=== PATIENT | male | born 1950 | race Caucasian/White ===

== ENCOUNTER → 2016-06-05 | Outpatient (CLI) | payer OTHER, MEDICARE | LOC: BMCIMAGING 17:27 | PROVIDERS: ATTEND Family Medicine | DX: M19.011 Primary osteoarthritis, right shoulder (principal); M24.011 Loose body in right shoulder ==

== ENCOUNTER 2016-09-25 18:28 | Observation (INO) | payer OTHER, MEDICARE ==
[2016-09-25] MEDS ORDERED: NS 1,000 ML IV ONE (18:37)
[2016-09-25] MEDS ORDERED: ASPIRIN 81 MG CHEWABLE TAB PO ONE (18:37)
--- NOTE | 2016-09-25 18:37 | EDPHY ---
H & P Stated Complaint: L chest pain x1.5 mins at 1530 today with diaphoresis, now all resolved HPI/ROS: HPI CHIEF COMPLAINT: Chest pain HISTORY OF PRESENT ILLNESS: This patient is 66-year-old male, significant past medical history for hypertension, otherwise healthy, only takes lisinopril daily , presents emergency room after developed chest discomfort around 330 this afternoon. 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 And then became painful he got very lightheaded and diaphoretic. He states it lasted approximately less than 2 minutes. States both his arms felt very heavy and he had tingling in bilateral arms. He also tells me a little bit of left jaw pain. He states symptoms have resolved since that time. He has not had a recurrence of this. Decided come the emergency room cause he thought that his symptoms were concerning. Upon arrival here in emergency room he has no chest pain or shortness of breath. He denies nausea or diaphoresis. Denies focal weakness. 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 Exam Constitutional appears well nontoxic, triage nursing summary reviewed, vital signs reviewed, awake/alert. Eyes normal conjunctivae and sclera, EOMI, PERRLA. HENT normal inspection, atraumatic, moist mucus membranes, no epistaxis, neck supple/ no meningismus, no raccoon eyes. Respiratory clear to auscultation bilaterally, normal breath sounds, no respiratory distress, no wheezing. Cardiovascular rate normal, regular rhythm, no murmur, no edema, distal pulses normal. Gastrointestinal soft, non-tender, no rebound, no guarding, normal bowel sounds, no distension, no pulsatile mass. Genitourinary no CVA tenderness. Musculoskeletal no midline vertebral tenderness, full range of motion, no calf swelling, no tenderness of extremities, no meningismus, good pulses, neurovascularly intact. Skin pink, warm, & dry, no rash, skin atraumatic. Neurologic awake, alert and oriented x 3, AAOx3, moves all 4 extremities equally, motor intact, sensory intact, CN II-XII intact, normal cerebellar, normal vision, normal speech. Psychiatric normal mood/affect. Heme/Lymph/Immune no lymphadenopathy. Differential diagnosis includes but is not limited to: ACS, atypical chest pain , pneumothorax, pneumonia, pulmonary embolism, aortic dissection, congestive heart failure, tumor, musculoskeletal pain, esophageal pain, GERD, peptic ulcer disease, pancreatitis Medical Decision Making: Plan for this patient IV establishment, full monitoring specialist, EKG, troponin, full-dose aspirin, check blood work, chest x-ray. Patient is chest pain-free at this time. Re-evaluation: EKG interpretation by me on record in [facility] system. Impression time of EKG 18 40, this is sinus rhythm rate of 66 I do not appreciate significant ischemia specifically no ST elevation no significant ST depression no significant T-wave abnormalities or prolonged intervals. No signs of cardiac arrhythmia. 2015: Patient is agreeable for admission for chest pain rule out. I spoke with Dr. Carrasco the hospitalist service agrees to admit this patient. At this time this patient is chest pain-free. Source: Patient - Personal History Current Tetanus/Diphtheria Vaccine: Unsure Current Tetanus Diphtheria and Acellular Pertussis (TDAP): Unsure - Medical/Surgical History Hx Asthma: No Hx Chronic Respiratory Disease: No Hx Diabetes: No Hx Cardiac Disease: No Hx Renal Disease: No Hx Cirrhosis: No Hx Alcoholism: No Hx HIV/AIDS: No Hx Splenectomy or Spleen Trauma: No Other PMH: htn. appy - Social History Smoking Status: Never smoked Constitutional: Initial Vital Signs Temperature (C) 36.7 C 09/25/16 18:31 Heart Rate 68 09/25/16 18:31 Respiratory Rate 16 09/25/16 18:31 Blood Pressure 156/104 H 09/25/16 18:31 O2 Sat (%) 95 09/25/16 18:31 O2 Delivery Mode Room Air Allergies/Adverse Reactions: No Known Allergies Allergy (Unverified 09/25/16 18:34) Home Medications: Medication Instructions Recorded Ibuprofen [Advil] 400 - 600 mg PO DAILY PRN 09/25/16 Lisinopril [Zestril 5 mg (*)] 5 mg PO DAILY 09/25/16 Meloxicam 7.5 mg PO DAILY PRN 09/25/16 Omeprazole [Prilosec 20 mg] 20 mg PO DAILY 09/25/16 Medical Decision Making - Diagnostics Imaging Results: Imaging Impressions Chest X-Ray 09/25/16 18:37 Impression: Clear lungs. Negative portable chest. - Data Points Laboratory Results: Laboratory Results 09/25/16 18:50 09/25/16 18:50 09/25/16 09/25/16 09/25/16 18:50 18:50 18:50 WBC 6.14 10^3/uL 10^3/uL (3.80-9.50) RBC 5.02 10^6/uL 10^6/uL (4.40-6.38) Hgb 15.4 g/dL g/dL (13.7-17.5) Hct 44.7 % % (40.0-51.0) MCV 89.0 fL fL (81.5-99.8) MCH 30.7 pg pg (27.9-34.1) MCHC 34.5 g/dL g/dL (32.4-36.7) RDW 13.1 % % (11.5-15.2) Plt Count 288 10^3/uL 10^3/uL (150-400) MPV 8.7 fL fL (8.7-11.7) Neut % (Auto) 51.1 % % (39.3-74.2) Lymph % (Auto) 34.2 % % (15.0-45.0) Baca % (Auto) 10.6 % % (4.5-13.0) Eos % (Auto) 2.4 % % (0.6-7.6) Baso % (Auto) 1.5 % % (0.3-1.7) Nucleat RBC Rel Count 0.0 % % (0.0-0.2) Absolute Neuts (auto) 3.14 10^3/uL 10^3/uL (1.70-6.50) Absolute Lymphs (auto) 2.10 10^3/uL 10^3/uL (1.00-3.00) Absolute Monos (auto) 0.65 10^3/uL 10^3/uL (0.30-0.80) Absolute Eos (auto) 0.15 10^3/uL 10^3/uL (0.03-0.40) Absolute Basos (auto) 0.09 10^3/uL 10^3/uL (0.02-0.10) Absolute Nucleated RBC 0.00 10^3/uL 10^3/uL (0-0.01) Immature Gran % 0.2 % % (0.0-1.1) Immature Gran # 0.01 10^3/uL 10^3/uL (0.00-0.10) PT 13.1 SEC SEC (12.0-15.0) INR 1.00 (0.83-1.16) APTT 27.8 SEC SEC (23.0-38.0) D-Dimer < 0.27 ug/mLFEU ug/mLFEU (0.00-0.50) Sodium 141 mEq/L mEq/L (134-144) Potassium 4.0 mEq/L mEq/L (3.5-5.2) Chloride 109 mEq/L mEq/L (97-110) Carbon Dioxide 22 mEq/l mEq/l (22-31) Anion Gap 10 mEq/L mEq/L (8-16) BUN 27 mg/dL H mg/dL (7-23) Creatinine 1.4 mg/dL H mg/dL (0.7-1.3) Estimated GFR 51 Glucose 92 mg/dL mg/dL (70-100) Calcium 9.8 mg/dL mg/dL (8.5-10.4) Magnesium 2.2 mg/dL mg/dL (1.6-2.3) Total Bilirubin 0.7 mg/dL mg/dL (0.1-1.4) Conjugated Bilirubin 0.3 mg/dL mg/dL (0.0-0.5) Unconjugated Bilirubin 0.4 mg/dL mg/dL (0.0-1.1) AST 21 IU/L IU/L (17-59) ALT 38 IU/L IU/L (21-72) Alkaline Phosphatase 73 IU/L IU/L (38-126) Creatine Kinase 76 IU/L IU/L (0-224) CK-MB (CK-2) Fraction 3.36 ng/mL H ng/mL (0-3.19) CK-MB (CK-2) % 4.4 % H % (0.0-4.0) Creatine Kinase Interp POSITIVE H (NEGATIVE) Troponin I < 0.012 ng/mL ng/mL (0-0.034) NT-Pro-B Natriuret Pep 42 pg/mL pg/mL (0-125) Total Protein 7.1 g/dL g/dL (6.3-8.2) Albumin 4.2 g/dL g/dL (3.5-5.0) Lipase 156.0 IU/L IU/L (23-300) Medications Given: Discontinued Medications Aspirin (Aspirin) 324 mg PO EDNOW ONE Stop: 09/25/16 18:38 Last Admin: 09/25/16 19:05 Dose: 324 mg Sodium Chloride (Ns) 1,000 mls @ 0 mls/hr IV ONCE ONE; Wide Open PRN Reason: Protocol Stop: 09/25/16 18:38 Last Admin: 09/25/16 19:00 Dose: 1,000 mls Departure - Dep[facility] Clinical Impression: Chest pain Qualifiers: Chest pain type: unspecified Qualified Code(s): R07.9 - Chest pain, unspecified Condition: Fair Referrals: Helio Reyes MD [Primary Care Provider] - As per Instructions
--- NOTE | 2016-09-25 18:44 | CPEKG ---
Heart Rate: 66 RR Interval: 909 P-R Interval: 172 QRSD Interval: 98 QT Interval: 412 QTC Interval: 432 P Jefferson: 47 QRS Jefferson: -26 T Wave Jefferson: 24 EKG Severity - OTHERWISE NORMAL ECG - EKG Impression: SINUS ARRHYTHMIA, RATE 55-75 EKG Impression: BORDERLINE LEFT AXIS DEVIATION Electronically Signed By: Sahil Weiss 25-Sep-2016 22:05:45
[2016-09-25 19:02] LABS: % IMMATURE GRANULYOCYTES 0.2 % (0.0-1.1); ABSOLUTE IMMATURE GRANULOCYTES 0.01 10^3/uL (0.00-0.10); ADD DIFF? NO; ADD MORPH? NO; ADD SCAN? NO; ATYPICAL LYMPHOCYTE FLAG 0 (0-99); FRAGMENT RBC FLAG 0 (0-99); HEMATOCRIT 44.7 % (40.0-51.0); HEMOGLOBIN 15.4 g/dL (13.7-17.5); LEFT SHIFT FLG 0 (0-99); LIPEMIA HEMOLYSIS FLAG 90 (0-99); MEAN CELL HEMOGLOBIN 30.7 pg (27.9-34.1); MEAN CELL HEMOGLOBIN CONCENTR. 34.5 g/dL (32.4-36.7); MEAN PLATELET VOLUME 8.7 fL (8.7-11.7); PLATELET CLUMPS FLAG 0 (0-99); PLATELET COUNT 288 10^3/uL (150-400); RED BLOOD CELL COUNT 5.02 10^6/uL (4.40-6.38); RED CELL DISTRIBUTION WIDTH 13.1 % (11.5-15.2)
[2016-09-25 19:11] LABS: APTT 27.8 SEC (23.0-38.0); PROTIME(PATIENT) 13.1 SEC (12.0-15.0)
[2016-09-25 19:17] LABS: ALANINE AMINOTRANSFERASE 38 IU/L (21-72); ALBUMIN 4.2 g/dL (3.5-5.0); ALKALINE PHOSPHATASE 73 IU/L (38-126); ANION GAP 10 mEq/L (8-16); ASPARTATE AMINOTRANSFERASE 21 IU/L (17-59); BILIRUBIN,TOTAL 0.7 mg/dL (0.1-1.4); BILIRUBIN-CONJUGATED 0.3 mg/dL (0.0-0.5); BILIRUBIN-UNCONJUGATED 0.4 mg/dL (0.0-1.1); CALCIUM 9.8 mg/dL (8.5-10.4); CARBON DIOXIDE 22 mEq/l (22-31); CHLORIDE 109 mEq/L (97-110); CREATININE 1.4 mg/dL (0.7-1.3); GLOMERULAR FILTRATION RATE 51; GLUCOSE 92 mg/dL (70-100); MAGNESIUM 2.2 mg/dL (1.6-2.3); SODIUM 141 mEq/L (134-144); TOTAL PROTEIN 7.1 g/dL (6.3-8.2)
[2016-09-25 19:29] LABS: TROPONIN I < 0.012 ng/mL (0-0.034)
[2016-09-25 19:37] LABS: CK-MB INTERPRETATION POSITIVE (NEGATIVE); CREATINE KINASE-MB FRACTION 3.36 ng/mL (0-3.19)
[2016-09-25] MEDS ORDERED: ONDANSETRON DISINTEGRATING 4 MG TAB PO PRN (21:07)
[2016-09-25] MEDS ORDERED: ONDANSETRON 4 MG/2 ML VIAL IVP PRN (21:07)
[2016-09-25] MEDS ORDERED: ACETAMINOPHEN 325 MG TAB PO PRN (21:07)
[2016-09-25] MEDS ORDERED: NITROGLYCERIN/DEXTROSE 250 ML IV SCH (21:30)
--- NOTE | 2016-09-25 21:58 | GHP ---
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 He was doing a tooth filling and a crown today when he had sudden onset of chest pressure radiating from the left to the right. He be came warm and his arms became heavy. The arm heaviness lasted about a minute. The chest pressure a couple of minutes longer. He had to stop the procedure and then when he felt better he began again . He was not diaphoretic. He was not short of breath. His father of congestive heart failure in his 70s. His brother of an aortic aneurysm. Th e patient has hypertension and family history of coronary disease. He has borderline cholesterol. He does not have diabetes and does not smoke cigarettes. Has not in many years and does not use rodrigo bridgette. He has good exercise tolerance jogging a mile a day. He has noticed no decrement in performa nce or exertional anginal-type symptoms. He does not have heart failure symptoms. He has had no fe hieu, chills. He does take 2 different NSAIDs so I wonder if this could be an esophageal process, b ut he has had no episodes of GI bleed. No vomiting. REVIEW OF SYSTEMS: Complete 10-point review of systems conducted and negative except as noted in HP I. PAST MEDICAL HISTORY: Hypertension. ALLERGIES: No known drug allergies. MEDICATIONS: Lisinopril 5, omeprazole, meloxicam and ibuprofen. 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 . FAMILY HISTORY: As in the HPI. PHYSICAL EXAM: VITAL SIGNS: On presentation, temp 36.7, blood pressure 156/104, was 175/100 when I was in there. Heart rate 50s and 60s. Breathing 16 times a minute, 95% on room air. GENERAL: No acute distress. HEENT: Sclerae anicteric. Oropharynx clear. Mucous membranes are moist. NECK: Supple. No lymphadenopathy or JVD. LUNGS: Clear to auscultation bilaterally. HEART: S1, S2. T here is a 2/6 systolic murmur heard throughout the precordium. ABDOMEN: Soft, nontender, nondisten ded. LOWER EXTREMITIES: No edema. Calves nontender. SKIN: Without rash. NEUROLOGIC: Nonfocal. LABORATORY DATA: Sodium 141, potassium 4.0, chloride 109, bicarb 22, BUN 27, creatinine 1.4, glucos e 92. LFTs normal. Troponin less than 0.012. His initial CK MB fraction is high, both by percent and absolute values. BNP is 42, lipase 156. D-dimer is negative. Coags normal. CBC is normal. C hest x-ray interpreted by me shows no acute cardiopulmonary disease. EKG, interpreted by me, shows sinus at 66 with normal axis and intervals. There is a T-wave inversion in III which is a normal va riant. It is really a nonischemic EKG. I have discussed the case with Dr. Sahil Weiss. ASSESSMENT AND PLAN: A 66-year-old gentleman with hypertension presents with story concerning for u nstable angina. 1. Chest pain. Symptoms have resolved. It is a concerning story. We will rapid cycle troponins a nd order a stress test, probably go straight to cath if it is positive. We will check a lipid panel in the morning. 2. Hypertension. He is markedly hypertensive. Given the concerning story, we will put him on a ni troglycerin drip. 3. Acute kidney injury. His baseline creatinine is 1.2, it is 1.4 while here. He has received molly e IV fluids. 4. NSAID use. That means it is possible this could represent an esophageal process however story i s certainly concerning with arm numbness for angina. 5. Prophylaxis. Pharmacologic prophylaxis indicated if in the hospital longer than 24 hours. We w ill hold on it for now. DISPOSITION: Observation status. /[id number]/MODL
[2016-09-26 06:54] LABS: ANION GAP 6 mEq/L (8-16); CALCIUM 8.9 mg/dL (8.5-10.4); CARBON DIOXIDE 22 mEq/l (22-31); CHLORIDE 113 mEq/L (97-110); CHOLESTEROL 223 mg/dL (140-220); CHOLESTEROL/HDL RATIO 6.19 RATIO (1.00-4.97); CREATININE 1.2 mg/dL (0.7-1.3); GLOMERULAR FILTRATION RATE > 60; GLUCOSE 92 mg/dL (70-100); HIGH DENSITY LIPOPROTEIN 36 mg/dL (40-65); LDL/HDL RATIO 4.36 RATIO (1.00-3.64); LOW DENSITY LIPOPROTEIN 157 mg/dL (80-100); NON-HIGH DENSITY LIPOPROTEIN 187 mg/dL (90-129); POTASSIUM 4.1 mEq/L (3.5-5.2); SODIUM 141 mEq/L (134-144); TRIGLYCERIDE 152 mg/dL (40-150); VERY LOW DENSITY LIPOPROTEINS 30 mg/dL (8-25)
[2016-09-26 07:05] LABS: TROPONIN I < 0.012 ng/mL (0-0.034)
[2016-09-26] MEDS ORDERED: PANTOPRAZOLE SODIUM 40 MG TAB PO SCH (09:00)
[2016-09-26] MEDS ORDERED: LISINOPRIL 5 MG TAB PO SCH (09:00)
[2016-09-26] MEDS ORDERED: PNEUMOC 13-VAL CONJ-DIP CRM/PF 0.5 ML SYR IM ONE ×2 (09:37→13:30)
[2016-09-26] MEDS ORDERED: REGADENOSON 0.4 MG/5 ML SYR IVP ONE (11:15)
[2016-09-26 14:04] VITALS: BP 154/98; PULSE 61; RESP 18; TEMP 98.1; O2SAT 91
--- NOTE | 2016-09-26 14:15 | CPR ---
[f rep st] NONINVASIVE CARDIAC PROCEDURE REPORT DATE OF PROCEDURE: 09/26/2016 PROCEDURE: Exercise treadmill test with nuclear imaging. INDICATIONS: Chest pain. COMPLICATIONS: None apparent. DESCRIPTION OF PROCEDURE: Informed consent was obtained. The patient was established to the [facility]. He was exercised according to standard Ishan protocol. Blood pressure every 3 minutes was obtai fernie. Continuous telemetry and continuous oxygen saturation monitoring was maintained. At 85% of ag e predicted max heart rate, he was injected with the radiotracer. He tolerated the procedure withou t difficulty. FINDINGS: 1. Resting EKG shows normal sinus rhythm. With stress, there was 1/[address] depression that was not diagnostic for ischemia. There were no arrhythmias. 2. Hemodynamics: Resting heart rate is 57 beats per minute with a blood pressure of 132/82. Peak heart rate is 140 beats per minute, which is of age-predicted maximum heart rate. Peak b lood pressure 200/74. 3. The patient exercised for 9 minutes on Ishan protocol achieving 10.2 METS. No symptoms. CONCLUSIONS: 1. Normal exercise treadmill test without ischemia. 2. Normal hemodynamic response to exercise. 3. No symptoms. 4. Nuclear images pending. Copy requested to: Primary Care Physician /[id number]/MODL
--- NOTE | 2016-09-26 17:09 | PDDCSUM ---
Discharge Summary Discharge Summary: Dates of service 09/25-09/26/16 Discharge dx: # chest pain # inga # gerd # hld Procedures performed: nuc stress test consultations: none Hospital course by problem: # chest pain: with w/u including nuc stress test negative for ischemia, no events noted on tele, chest pain has now completely resolved. Feel it is more likely GI related given hx of gerd and daily use of 2 different nsaids. Reviewed f/u plans and return precautions # inga: resolved, again recommended he discontinue use of 2 separate nsaids # gerd: continue ppi, as above # hld: elevated ldl, recommend f/u with pcp to determine whether or not to intiate tx DC home f/u with PCP Meds: see EHR > 35 minutes spent in dc of patient more than half in face to face counseling regarding test results and f/u care plans
== END 2016-09-26 14:26 | disposition home or self-care (01) ==
LOC: F2W 21:28
PROVIDERS: ADMIT Internal Medicine; ATTEND Internal Medicine
DX: R07.9 Chest pain, unspecified (principal); N17.9 Acute kidney failure, unspecified; K21.9 Gastro-esophageal reflux disease without esophagitis; E78.5 Hyperlipidemia, unspecified; I10 Essential (primary) hypertension; Z82.49 Family history of ischemic heart disease and other diseases of the circulatory system; Z98.1 Arthrodesis status; Z23 Encounter for immunization
CPT/HCPCS: 71010; 78452; 90670; 93005; 93017; 96360; 99285; A9500; G0009; G0378; J2785

== ENCOUNTER 2017-05-17 05:43 | Inpatient (IN) | payer OTHER, MEDICARE ==
[2017-05-17] MEDS ORDERED: ACETAMINOPHEN 500 MG TAB PO ONE (06:14)
[2017-05-17] MEDS ORDERED: ceFAZolin 2 GM/SWFI 2 GM/20 ML SYR IVP ONE (06:14)
[2017-05-17] MEDS ORDERED: GABAPENTIN 300 MG CAP PO ONE (06:14)
[2017-05-17] MEDS ORDERED: BUPIVACAINE 0.25% 30 ML SDV ONE (06:38)
[2017-05-17] MEDS ORDERED: CHLORHEXIDINE GLUC HIBICLENS 118 ML BTL TP ONE (06:38)
[2017-05-17] MEDS ORDERED: THROMBIN (BOVINE) 5,000 UNIT VIAL TP ONE (06:39)
[2017-05-17] MEDS ORDERED: BACITRACIN 50,000 UNITS/10 ML SYR IRR ONE (06:39)
[2017-05-17] MEDS ORDERED: LR 1,000 ML IV ONE (06:41)
--- NOTE | 2017-05-17 07:00 | PDHPUP ---
History & Physical Update H&P update statement: This history and physical update is based on an assessment of the patient which was completed after admission or registration (within 24 hours), but prior to the surgery/procedure. H&P update: H&P reviewed & patient examined, no change in patient's condition since H&P completed
--- NOTE | 2017-05-17 07:06 | PDANEPAE ---
ANE Past Medical History - Cardiovascular History Hx Hypertension: Yes Hx Arrhythmias: No Hx Chest Pain: No Hx Coronary Artery / Peripheral Vascular Disease: No Hx CHF / Valvular Disease: No Hx Palpitations: No - Pulmonary History Hx COPD: No Hx Asthma/Reactive Airway Disease: No Hx Recent Upper Respiratory Infection: No Hx Oxygen in Use at Home: No Hx Sleep Apnea: No Sleep Apnea Screening Result - Last Documented: Positive - Neurologic History Hx Cerebrovascular Accident: No Hx Seizures: No Hx Dementia: No - Endocrine History Hx Diabetes: No - Renal History Hx Renal Disorders: No - Liver History Hx Hepatic Disorders: No - Neurological & Psychiatric Hx Hx Neurological and Psychiatric Disorders: No - Cancer History Hx Cancer: Yes Cancer History Comment: skin cancer removed from nose - Congenital Disorder History Hx Congenital Disorders: No - GI History Hx Gastrointestinal Disorders: Yes Gastrointestinal History Comment: reflux - Other Health History Other Health History: none - Chronic Pain History Chronic Pain: Yes (right knee right shoulder has a tendancy to dislocated) - Surgical History Prior Surgeries: NONE ANE Review of Systems Review of Systems: - Exercise capacity METS (RN): 4 METS ANE Patient History - Allergies Allergies/Adverse Reactions: No Known Allergies Allergy (Verified 05/14/17 12:04) - Home Medications Home Medications: Lisinopril [Zestril 5 mg (*)] 5 mg PO DAILY 09/25/16 [Last Taken 09/25/16] Omeprazole [Prilosec 20 mg] 20 mg PO DAILY 09/25/16 [Last Taken 09/25/16] Acetaminophen [Tylenol 325mg (*)] 325 mg PO DAILY PRN 05/14/17 [Last Taken Unknown] - NPO status NPO Since - Liquids (Date): 05/17/17 NPO Since - Liquids (Time): 05:00 NPO Since - Solids (Date): 05/16/17 NPO Since - Solids (Time): 19:30 - Smoking Hx Smoking Status: Former smoker - Family Anes Hx Family Hx Anesthesia Complications: NONE ANE Labs/Vital Signs - Vital Signs Blood Pressure: 130/85 Heart Rate: 75 Respiratory Rate: 16 O2 Sat (%): 94 Height: 162.56 cm Weight: 69.853 kg ANE Physical Exam - Airway Mallampati Score: Class 2 - ASA Status ASA Status: II ANE Anesthesia Plan Anesthesia Plan: general endotracheal anesthesia
[2017-05-17] MEDS ORDERED: MIDAZOLAM 2 MG/2 ML VIAL ONE (07:13)
[2017-05-17] MEDS ORDERED: PROPOFOL/EMULSION 500 MG/50 ML BOTTLE IV ONE ×3 (07:14→10:20)
[2017-05-17] MEDS ORDERED: fentaNYL 100 MCG/2 ML INJ ONE ×3 (07:14→12:58)
[2017-05-17] MEDS ORDERED: ONDANSETRON DISINTEGRATING 4 MG TAB PO PRN (10:15)
[2017-05-17] MEDS ORDERED: ONDANSETRON 4 MG/2 ML VIAL IVP PRN (10:15)
[2017-05-17] MEDS ORDERED: morphINE PCA 30 MG/30 ML PCA IV PRN (10:15)
[2017-05-17] MEDS ORDERED: diphenhydrAMINE 25 MG CAP PO PRN (10:15)
[2017-05-17] MEDS ORDERED: MAGNESIUM HYDROXIDE 30 ML UDCUP PO PRN (10:15)
[2017-05-17] MEDS ORDERED: BISACODYL 10 MG SUPP PR PRN (10:15)
[2017-05-17] MEDS ORDERED: LACTULOSE 20 GM/30 ML UDCUP PO PRN (10:15)
[2017-05-17] MEDS ORDERED: POLYETHYLENE GLYCOL 3350 17 GM PKT PO PRN (10:15)
[2017-05-17] MEDS ORDERED: NALOXONE HCL 0.4 MG/ML INJ IVP PRN ×2 (10:15→12:32)
[2017-05-17] MEDS ORDERED: METOCLOPRAMIDE 10 MG/2 ML VIAL ONE (10:24)
[2017-05-17] MEDS ORDERED: PHENYLEPHRINE HCL 100 MCG/ML SYR ONE (10:24)
[2017-05-17] MEDS ORDERED: ROCURONIUM 50 MG/5 ML VIAL ONE (10:24)
[2017-05-17] MEDS ORDERED: ONDANSETRON 4 MG/2 ML VIAL ONE (10:24)
[2017-05-17] MEDS ORDERED: LR 500 ML IV PRN (12:32)
[2017-05-17] MEDS ORDERED: PROMETHAZINE HCL 25 MG/ML INJ IVP PRN (12:32)
--- NOTE | 2017-05-17 12:33 | POSTANESTH ---
Post Anesthetic Evaluation Cardiovascular Status: Normal, Stable Respiratory Status: Normal, Stable Level of Consciousness/Mental Status: Can Participate in Eval Pain Control: Adequate, Prn Tx Ordered Nausea/Vomiting Control: Adequate, Prn Tx Ordered Complications Possibly Related to Anesthesia: None Noted
--- NOTE | 2017-05-17 12:52 | POSTOPPROG ---
Post Op Note Date of Operation: 05/17/17 Surgeon: Dulce Still Nsh Teacher: Yuki Foster NP Anesthesiologist: Cass Anesthesia: GET(General Endotracheal) Pre-op Diagnosis: ASD, Stenosis Procedure: L4-5 TLIF, Hardware removal and PSF L4-S1 Inf/Abcess present in the surg proc area at time of surgery?: No Depth: Deep Incisional (Fascial) EBL: 100-500 Total fluids administered: see anesthesia Complications: none Drains: Dusty Saab Date of Surgery: 05/17/17 Post Op Day: 0 Assessment/Plan: Assessment: 67 yr old s/p L4-5 TLIF with hardware removal and PSF L4-S1 for right foot drop and left leg pain Plan: -Pain management, [employer] ordered if needed -PT/OT -Wear brace when out of bed, patient already has brace -Post op xrays pending for tomorrow -Please call neurosurgery with any questions/concerns Subjective: waking up in PACU Objective: Waking up in pacu vss 5/5 BUE 5/5 LLE 5/5 RLE aside from 3/5 right TA and EHL Dressing CDI SHARON patent Appropriate Neuro Check Frequency Ordered: No
[2017-05-17] MEDS: fentaNYL 100 MCG/2 ML INJ IVP PRN ×3 (13:00→13:34)
[2017-05-17] MEDS: ceFAZolin 2 GM/DEXTROSE 100 ML IV SCH ×2 (15:17→21:24)
[2017-05-17] MEDS: GABAPENTIN 300 MG CAP PO SCH ×2 (15:18→21:21)
[2017-05-17] MEDS: ACETAMINOPHEN 500 MG TAB PO SCH ×2 (15:18→21:22)
--- NOTE | 2017-05-17 19:17 | GOP ---
[f rep st] OPERATIVE REPORT DATE OF OPERATION: 05/17/2017 SURGEON: Val Still MD NEUROSURGEON: Val Still MD. CRTTS: Yuik Foster, Nurse Practitioner. PREOPERATIVE DIAGNOSIS: Right footdrop, severe left lumbosacral radiculopathy, adjacent segment dise ase, severe spinal stenosis, L4-5. Prior successful fusion at L5-S1. POSTOPERATIVE DIAGNOSIS: Right footdrop, severe left lumbosacral radiculopathy, adjacent segment dis ease, severe spinal stenosis, L4-5. Prior successful fusion at L5-S1. PROCEDURE PERFORMED: Removal of posterior nonsegmental instrumentation across a single interspace at L5-S1. This was [employer] hardware that was removed. Posterior-lateral and intervertebral a rthrodesis at the L4-5 level (13061); placement of biomechanical intervertebral device L4-5 (75058); posterior segmental instrumentation L4, L5, S1 ([id number]); microscope; same incision bone graft harvest. FINDINGS: ESTIMATED BLOOD LOSS: 250 cc. 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 Gareth Davila several years ago. He had developed a solid bony union. There were no surgical compl ications. However, he developed a right footdrop and severe radiating pain down the left leg. MRI d emonstrated a broad prolapse of the L4-5 disk and compression of the bilateral L5 nerve roots. In ad dition, there was a central and left paracentral disk protrusion creating mass effect on the traversi ng left L5 nerve root, causing the left leg pain. I suggested adjacent segment stabilization. The r isk of adjacent segment disease and the need for future surgery at the L3-4 level was discussed. He knew there was risk of CSF leak, nerve injury, continued symptoms, and he wanted to proceed. He knew there was risk of screw and hardware malfunction and failure. DESCRIPTION OF PROCEDURE: The patient was taken to the operating room, placed in supine position. G eneral anesthesia was begun. He was flipped prone onto the Dusty table. Care was taken to pad all points of contact. The right arm was placed in the sling down in front of his chest, in a very neut ral position. He did not have any subluxation of the shoulder in this position. The left arm was pu t in its standard location. He was sterilely prepped and draped. The arm was introduced sterilely. The prior incisions he had, there were 4 prior incisions on his back and the total length of the inc isions that were used for percutaneous screw placement and TLIF was 94 mm. We made a new incision in his midline back, and the total length of the incision that I used to remove all the prior hardware and to perform an adjacent segment surgery was 96 mm. The subcutaneous tissue was dissected using th e plasma blade down to the fascia, and a subperiosteal dissection was made down the inferior lamina o f L3, the complete lamina of L4 was exposed. We then exposed the prior hardware bilaterally at L5-S1 , and this hardware was removed. There was solid bony union present at L5-S1. We attached the [employer] reference frame and using frameless steel stereotactic, we placed pedicle scr ews bilaterally at L4, L5, and S1. These were done using intraoperative navigation and a spin that w as made from the O arm. The screws were in excellent position. We checked the position with an O-ar m spin. There was no breach of the pedicle. They all stimulated greater than 20 milliamperes. We u sed new trajectories, naturally, at the L4 pedicle, but we also created new trajectories at L5. They were somewhat more medial than the prior surgeon's lateral to medial approach because of the percuta neous nature of the prior surgery. We did use the old screw holes at the S1 level, and I elected to put in the S1 screws because I was concerned about the competency of the L5 pedicles and I thought ut ilizing S1 would alleviate this concern. We placed rods down over these screws and significantly dis tracted at L4-5. Naturally, there is no distraction at L5-S1. We locked all the rods in place. Then removed all the soft tissue from the bone at L4-5, introduced operating microscope and removed t he interspinous and supraspinous ligament at L4-5. Under the scope, we opened ligamentum flavum. We drilled bilateral laminas of L4 and the rostral L5 laminectomy. We harvested this for autologous gr afting purposes. We then worked our way into the lateral recess bilaterally and on the left-hand job e, we completely removed the left L4-5 facet, decompressed the exiting L4 nerve root and the traversi ng L5 nerve root. We likewise went to the right where we performed a medial facetectomy and decompre ssed the traversing L5 root, and then probed the foramen for the L4 root and it had plenty of room in the foramen itself. We then swept the left L5 nerve root medially and underneath the nerve in a giancarlo tral location was a free disk fragment herniation. We simply squeezed this out with a ball-tip disse ctor. There was a large amount of disk. We then incised the L4-5 disk, and removed the disk and the cartilaginous endplates. We roughened th e subchondral bone to create arthrodesis, and we sized with the largest trial size from [employer], an d chose a 10 x 28 mm device. We placed bone autograft and BMP into the disk space, followed by the d evice, which was expanded under fluoroscopic guidance. There was no nerve irritability in placement of the device. It was expanded to its full size, up to 15 mm. X-rays were taken confirming the loca tion of the device. We then relaxed at L4-5 and compressed somewhat to create a little bit greater l ordosis at L4-5. This kinked the dura over our L5 laminotomy defect a little more on the right than on the left, and we used a Kerrison to remove some additional bone there on the right-hand side. We then took a small piece of Gelfoam and tucked it into that bone edge to help protect the dura from th e rostral arch of L5. We then placed a subfascial drain. We decorticated all the remaining posterior lateral bone, placed BMP and bony autograft, posterolaterally bilaterally. We then closed the incision in multiple layers using Vicryl sutures. A running PDS was placed in the skin itself. The patient was reversed from a nesthesia, extubated, and transferred to recovery room in stable condition. There were no complicati ons. COMPLICATIONS: None. INSTRUMENTATION PLACED: Solera 5.5 mm titanium system with a 55 mm jose alfredo. We used a 10 x 28 mm Elevat e cage at L4-5, and we used 2.0 mg of bone morphogenic protein. COMPLICATIONS: None. /[id number]/MODL
[2017-05-17] MEDS: oxyCODONE IR 5 MG TAB PO PRN (21:22)
[2017-05-17] MEDS: SENNOSIDES/DOCUSATE SODIUM TAB PO SCH (21:22)
[2017-05-17] MEDS: METHOCARBAMOL 750 MG TAB PO PRN (21:22)
[2017-05-17] MEDS: FAMOTIDINE 20 MG TAB PO SCH (21:22)
[2017-05-17] MEDS: LISINOPRIL 5 MG TAB PO SCH (21:23)
[2017-05-18] MEDS: oxyCODONE IR 5 MG TAB PO PRN ×4 (01:23→14:38)
[2017-05-18 05:14] LABS: PLATELET COUNT 243 10^3/uL (150-400)
[2017-05-18] MEDS: GABAPENTIN 300 MG CAP PO SCH ×3 (05:19→21:29)
[2017-05-18] MEDS: ACETAMINOPHEN 500 MG TAB PO SCH ×3 (05:19→21:28)
--- NOTE | 2017-05-18 07:25 | NEUSURGPN ---
Date of Surgery: 05/17/17 Post Op Day: 1 Assessment/Plan: Assessment: 67 yr old male that is s/p L4-5 TLIF with hardware removal and PSF L4-S1 for right foot drop and left leg pain Plan: -Pain management, TRAY DELIVERY AIDE ordered if needed-doing well on PO meds -post op xrays pending -SHARON to be removed today -d/w Dr Still -PT/OT-CPM -Wear brace when out of bed, patient already has brace -Pt understands plan and agrees -plan for likely dc late today but more likely in the am -Please call neurosurgery with any questions/concerns Subjective: Awake and alert. NAD. Pt with expected lower back pain. Legs feel better Objective: AFVSS, PERRLA/EOMI no droop 5/5 BUE 5/5 LLE 5/5 RLE aside from 4-/5 right TA and EHL Dressing CDI SHARON in place and patent Neuro Check Frequency: per routine Urinary Catheter in Place: No Catheter Insertion Date: 05/17/17 - Physician Discussed Patient with : Cheko Neurosurgery Physical Exam - Vitals, I&O, Labs I and O 05/17/17 05/18/17 05/19/17 05:59 05:59 05:59 Intake Total 1440 Output Total 2435 Balance -995 Weight 69.853 kg Intake: Oral (ml) 790 IV Intake (ml) 650 Output: Urine (ml) 1850 Catheter 1850 Estimated Blood Loss (ml) 250 SHARON Drain Output (ml) 335 Back Dusty Saab 335 Other: Intake Quantity Yes Sufficient Vital Signs Temp Pulse Resp BP Pulse Ox 36.9 C 73 18 98/58 L 95 05/18/17 04:00 05/18/17 04:00 05/18/17 04:00 05/18/17 04:00 05/18/17 04:00 Laboratory Results 05/18/17 05:07 05/18/17 05:07 ICD10 Worksheet Patient Problems: Problems Problem Status Onset Chest pain Acute
[2017-05-18] MEDS ORDERED: PANTOPRAZOLE SODIUM 40 MG TAB PO SCH (09:00)
[2017-05-18] MEDS: OMEPRAZOLE 20 MG PO SCH (09:03)
[2017-05-18] MEDS: SENNOSIDES/DOCUSATE SODIUM TAB PO SCH ×2 (09:04→21:29)
[2017-05-18] MEDS: FAMOTIDINE 20 MG TAB PO SCH ×2 (09:05→21:30)
--- NOTE | 2017-05-18 15:19 | ASMTCMCOM ---
CM Note CM Note Notes: Pt is s/p L4-5 TLIF and hardware removal. PT has cleared. Anticipate d/c with no CM needs but will continue to follow for any change in needs. Date Signed: 05/18/2017 03:18 PM Electronically Signed By:ORI Brantley
[2017-05-18] MEDS: LISINOPRIL 5 MG TAB PO SCH (21:31)
[2017-05-19] MEDS: ACETAMINOPHEN 500 MG TAB PO SCH ×3 (04:48→21:51)
--- NOTE | 2017-05-19 08:04 | NEUSURGPN ---
Date of Surgery: 05/17/17 Post Op Day: 2 Assessment/Plan: Assessment: 67 yr old male that is s/p L4-5 TLIF with hardware removal and PSF L4-S1 for right foot drop and left leg pain Plan: -Pain management, IRRIGATION LABORER ordered if needed-doing well on PO meds -post op xrays look good-reviewed with Dr Still -SHARON removed-site looks good -CDI-dressing changed -d/w Dr Still -PT/OT-CPM -Wear brace when out of bed, patient already has brace -Pt understands plan and agrees -plan for likely dc late today -Please call neurosurgery with any questions/concerns Subjective: Awake and alert. NAD. Eating/drinking and voiding. No f/c/n/v/d. No dumont/neck/ chest/abd or gu complaints. Objective: AFVSS, PERRLA/EOMI no droop 5/5 BUE 5/5 LLE 5/5 RLE aside from 4-/5 right TA and EHL Dressing CDI SHARON site looks good Neuro Check Frequency: per routine Urinary Catheter in Place: No Catheter Insertion Date: 05/17/17 - Physician Discussed Patient with : Cheko Neurosurgery Physical Exam - Vitals, I&O, Labs I and O 05/18/17 05/19/17 05/20/17 05:59 05:59 05:59 Intake Total 1440 700 Output Total 2435 1795 400 Balance -995 -1095 -400 Weight 69.853 kg Intake: Oral (ml) 790 700 IV Intake (ml) 650 Output: Urine (ml) 1850 1725 400 Catheter 1850 Urinal 1725 400 Estimated Blood Loss (ml) 250 SHARON Drain Output (ml) 335 70 Back Dusty Saab 335 70 Other: Intake Quantity Yes Sufficient Vital Signs Temp Pulse Resp BP Pulse Ox 37.7 C 85 18 116/70 96 05/19/17 04:00 05/19/17 04:00 05/19/17 04:00 05/19/17 04:00 05/19/17 04:00 Laboratory Results 05/18/17 05:07 05/18/17 05:07 ICD10 Worksheet Patient Problems: Problems Problem Status Onset Chest pain Acute
[2017-05-19] MEDS: OMEPRAZOLE 20 MG PO SCH (08:47)
[2017-05-19] MEDS: SENNOSIDES/DOCUSATE SODIUM TAB PO SCH ×2 (10:09→20:17)
[2017-05-19] MEDS: FAMOTIDINE 20 MG TAB PO SCH ×2 (10:09→20:15)
[2017-05-19] MEDS: oxyCODONE IR 5 MG TAB PO PRN ×2 (10:12→20:15)
--- NOTE | 2017-05-19 13:36 | ASMTLACE ---
RICHARD Length of stay for Answers: 3 days current admission Acuity / Level of Answers: Yes Care: Did the patient have an inpatient admission? # of Emergency department Answers: 0 visits in the last 6 months Score: 6 Date Signed: 05/19/2017 01:36 PM Electronically Signed By:Beba Pereira
[2017-05-19 15:09] LABS: PLATELET COUNT 250 10^3/uL (150-400)
--- NOTE | 2017-05-19 15:49 | ASMTCMCOM ---
CM Note CM Note Notes: Patient was to discharge home today but found to have a fever so discharge canceled Met with patient to discuss potential discharge needs, patient has support from at home and denies additional services. IM signed and placed in chart. CM will continue to follow for any needs. Current discharge plan: Home independent with family support. Date Signed: 05/19/2017 03:48 PM Electronically Signed By:Beba Pereira
[2017-05-19] MEDS: LISINOPRIL 5 MG TAB PO SCH (20:14)
[2017-05-19] MEDS: GABAPENTIN 300 MG CAP PO SCH (20:14)
[2017-05-19] MEDS: METHOCARBAMOL 750 MG TAB PO PRN (20:26)
[2017-05-19] MEDS: IPRATROPIUM/ALBUTEROL 4GM MDI IH SCH (22:16)
[2017-05-20] MEDS: ACETAMINOPHEN 500 MG TAB PO SCH ×3 (05:13→21:24)
[2017-05-20] MEDS: IPRATROPIUM/ALBUTEROL 4GM MDI IH SCH ×3 (06:11→08:45)
--- NOTE | 2017-05-20 07:19 | NEUSURGPN ---
Date of Surgery: 05/17/17 Post Op Day: 3 Assessment/Plan: Assessment: 67 yr old male that is s/p L4-5 TLIF with hardware removal and PSF L4-S1 for right foot drop and left leg pain Plan: -Pain management, CAMPGROUND HAND ordered if needed-was doing well on PO meds -post op xrays look good-reviewed with Dr Still -pt spiked a temp yesterday and labs ordered including CXR that looked ok except for +RSV -spoke with Dr Tyrone Carrasco about this and recommended combivent if needed-pt doing fine from a pulmonary status and fevers -call from RN last night that pt has a NAVARRETE that is severe. These resolve when laying flat. Dr Still to see pt as well this am and we recommend exploration and possible repair of ?csf leak. Pt consented and understands risks and need for surgery -SHARON site looks good -pt with LLQ abd pain as well-call to Hospitalist for consult -CDI-dressing in place -seen by Dr Still -PT/OT-CPM -Wear brace when out of bed, patient already has brace but pt is flat at this time -Pt understands plan and agrees -Please call neurosurgery with any questions/concerns Subjective: Awake and alert. No NAVARRETE when lying flat. No cp/sob or complaints. No n/v/ d. +LLQ abd pain Objective: AFVSS, PERRLA/EOMI no droop 5/5 BUE 5/5 LLE 5/5 RLE aside from 4-/5 right TA and EHL Dressing CDI SHARON site looks good Neuro Check Frequency: per routine Urinary Catheter in Place: No Catheter Insertion Date: 05/17/17 - Physician Discussed Patient with : Cheko Patient Seen by : Cheko Neurosurgery Physical Exam - Vitals, I&O, Labs I and O 05/19/17 05/20/17 05/21/17 05:59 05:59 05:59 Intake Total 700 250 Output Total 1795 600 Balance -1095 -350 Intake: Oral (ml) 700 250 Output: Urine (ml) 1725 600 Toilet 200 Urinal 1725 400 SHARON Drain Output (ml) 70 Back Dusty Saab 70 Other: Intake Quantity Yes Sufficient Number of Stools Toilet 1 Vital Signs Temp Pulse Resp BP Pulse Ox 36.9 C 71 18 101/68 98 05/20/17 03:03 05/20/17 03:03 05/20/17 03:03 05/20/17 03:03 05/20/17 03:03 Laboratory Results 05/19/17 14:37 05/19/17 14:37 ICD10 Worksheet Patient Problems: Problems Problem Status Onset Chest pain Acute
[2017-05-20] MEDS ORDERED: ENOXAPARIN 40 MG/0.4 ML SYR SC SCH (09:00)
[2017-05-20] MEDS ORDERED: IOPAMIDOL (ISOVUE-300) 100 ML BTL ONE (09:47)
[2017-05-20] MEDS: FAMOTIDINE 20 MG TAB PO SCH ×2 (11:15→19:54)
[2017-05-20] MEDS: OMEPRAZOLE 20 MG PO SCH (11:15)
[2017-05-20] MEDS: METHOCARBAMOL 750 MG TAB PO PRN ×2 (11:25→21:24)
[2017-05-20 13:01] LABS: PLATELET COUNT 257 10^3/uL (150-400)
[2017-05-20] MEDS ORDERED: ceFAZolin 2 GM/DEXTROSE 100 ML IV ONE (14:00)
[2017-05-20] MEDS ORDERED: ceFAZolin 2 GM/SWFI 2 GM/20 ML SYR IVP ONE (14:00)
[2017-05-20] MEDS ORDERED: LR 1,000 ML IV ONE (14:06)
[2017-05-20] MEDS ORDERED: THROMBIN (BOVINE) 5,000 UNIT VIAL TP ONE (14:18)
[2017-05-20] MEDS ORDERED: CHLORHEXIDINE GLUC HIBICLENS 118 ML BTL TP ONE (14:18)
[2017-05-20] MEDS ORDERED: BUPIVACAINE 0.25% 30 ML SDV ONE (14:18)
[2017-05-20] MEDS ORDERED: BACITRACIN 50,000 UNITS/10 ML SYR IRR ONE (14:19)
[2017-05-20] MEDS ORDERED: MIDAZOLAM 2 MG/2 ML VIAL IVP ONE ×2 (14:30→14:39)
--- NOTE | 2017-05-20 14:30 | PDANEPAE ---
ANE History of Present Illness I&D back wound ANE Past Medical History - Cardiovascular History Hx Hypertension: Yes Hx Arrhythmias: No Hx Chest Pain: No Hx Coronary Artery / Peripheral Vascular Disease: No Hx CHF / Valvular Disease: No Hx Palpitations: No - Pulmonary History Hx COPD: No Hx Asthma/Reactive Airway Disease: No Hx Recent Upper Respiratory Infection: No Hx Oxygen in Use at Home: No Hx Sleep Apnea: No Sleep Apnea Screening Result - Last Documented: Positive - Neurologic History Hx Cerebrovascular Accident: No Hx Seizures: No Hx Dementia: No - Endocrine History Hx Diabetes: No - Renal History Hx Renal Disorders: No - Liver History Hx Hepatic Disorders: No - Neurological & Psychiatric Hx Hx Neurological and Psychiatric Disorders: No - Cancer History Hx Cancer: Yes Cancer History Comment: skin cancer removed from nose - Congenital Disorder History Hx Congenital Disorders: No - GI History Hx Gastrointestinal Disorders: Yes Gastrointestinal History Comment: reflux - Other Health History Other Health History: none - Chronic Pain History Chronic Pain: Yes (right knee right shoulder has a tendancy to dislocated) - Surgical History Prior Surgeries: NONE ANE Review of Systems Review of Systems: - Exercise capacity METS (RN): 4 METS ANE Patient History - Allergies Allergies/Adverse Reactions: No Known Allergies Allergy (Verified 05/14/17 12:04) - Home Medications Home Medications: Lisinopril [Zestril 5 mg (*)] 5 mg PO HS 09/25/16 [Last Taken 05/16/17 21:00] Omeprazole [Prilosec 20 mg] 20 mg PO DAILY 09/25/16 [Last Taken 09/25/16] - NPO status NPO Since - Liquids (Date): 05/20/17 NPO Since - Liquids (Time): 00:00 NPO Since - Solids (Date): 05/20/17 NPO Since - Solids (Time): 00:00 - Anes Hx Anes Hx: no prior problems - Smoking Hx Smoking Status: Former smoker - Family Anes Hx Family Hx Anesthesia Complications: NONE ANE Labs/Vital Signs - Labs Result Diagrams: 05/20/17 12:53 05/20/17 12:53 - Vital Signs Blood Pressure: 134/75 Heart Rate: 88 Respiratory Rate: 18 O2 Sat (%): 98 Height: 165.1 cm Weight: 69.853 kg ANE Physical Exam - Airway Mallampati Score: Class 2 Mouth exam: normal dental/mouth exam - Pulmonary Pulmonary: no respiratory distress - Cardiovascular Cardiovascular: regular rate and rhythym - ASA Status ASA Status: II ANE Anesthesia Plan Anesthesia Plan: general endotracheal anesthesia
[2017-05-20] MEDS ORDERED: DEXAMETHASONE 4 MG/ML VIAL ONE (14:32)
[2017-05-20] MEDS ORDERED: ROCURONIUM 50 MG/5 ML VIAL ONE (14:32)
[2017-05-20] MEDS ORDERED: LIDOCAINE 2% 5 ML SDV ONE (14:33)
[2017-05-20] MEDS ORDERED: PROPOFOL/EMULSION 500 MG/50 ML BOTTLE IV ONE ×2 (14:33→16:06)
[2017-05-20] MEDS ORDERED: fentaNYL 100 MCG/2 ML INJ ONE ×3 (14:33→17:03)
[2017-05-20] MEDS ORDERED: MIDAZOLAM 2 MG/2 ML VIAL ONE (14:38)
[2017-05-20] MEDS ORDERED: PHENYLEPHRINE HCL 100 MCG/ML SYR ONE (15:00)
[2017-05-20] MEDS: SENNOSIDES/DOCUSATE SODIUM TAB PO SCH ×2 (16:06→19:53)
[2017-05-20] MEDS ORDERED: ONDANSETRON 4 MG/2 ML VIAL ONE (16:07)
[2017-05-20] MEDS ORDERED: SUGAMMADEX SODIUM 200 MG/2 ML VIAL IVP ONE (16:09)
[2017-05-20] MEDS ORDERED: HYDROCODONE/APAP 5/325 TAB PO PRN (16:18)
[2017-05-20] MEDS ORDERED: HYDROmorphONE/DILAUDID 1 MG/ML INJ IVP PRN (16:18)
[2017-05-20] MEDS ORDERED: traMADol 50 MG TAB PO PRN (16:24)
[2017-05-20] MEDS ORDERED: NS W/ 20 KCl/L 1,000 ML IV SCH (16:30)
[2017-05-20] MEDS ORDERED: ALBUTEROL 3 ML DEYVIAL IH PRN (16:58)
[2017-05-20] MEDS ORDERED: NALOXONE HCL 0.4 MG/ML INJ IVP PRN (16:58)
[2017-05-20] MEDS ORDERED: ONDANSETRON 4 MG/2 ML VIAL IVP PRN (16:58)
[2017-05-20] MEDS ORDERED: MEPERIDINE 25 MG/ML SYR IVP PRN (16:58)
[2017-05-20] MEDS ORDERED: HYDROmorphONE/DILAUDID 1 MG/ML INJ ONE (17:02)
[2017-05-20] MEDS: fentaNYL 100 MCG/2 ML INJ IVP PRN ×2 (17:05→17:10)
[2017-05-20] MEDS: HYDROmorphONE/DILAUDID 1 MG/ML INJ IVP PRN ×2 (17:07→17:18)
--- NOTE | 2017-05-20 17:10 | POSTOPPROG ---
Post Op Note Date of Operation: 05/20/17 Surgeon: Dulce Still Merchandise Stocker: Yuki Foster NP Anesthesiologist: Lincoln Anesthesia: GET(General Endotracheal) Pre-op Diagnosis: Positional headaches, possible CSF leak Post-op Diagnosis: Positional headaches, no CSF leak Procedure: Exploration of wound with laminotomy L4-5 Inf/Abcess present in the surg proc area at time of surgery?: No Depth: Deep Incisional (Fascial) EBL: 50-100 Total fluids administered: see anesthesia Complications: none Date of Surgery: 05/20/17 Post Op Day: 0 Assessment/Plan: Assessment: 67 yr old male that is s/p L4-5 TLIF with hardware removal and PSF L4-S1 for right foot drop and left leg pain POD#3, Exploration of wound and laminotomy L4-5 POD #0 Plan: -Pain management, pain medications changed to see if helps with headaches -Patient did not have a CSF leak found inta-op, will continue to monitor headaches -Patient is positive for RSV, on droplet precautions -spoke with Dr Tyrone Carrasco about this and recommended combivent if needed-pt doing fine from a pulmonary status and fevers -pt with LLQ abd pain as well-call to Hospitalist for consult -Dressing CDI-used paper tape due to skin break down present at some of the steri strip sites -PT/OT -Wear brace when out of bed, patient already has brace -Please call neurosurgery with any questions/concerns Subjective: waking up in PACU Objective: Waking up in PACU PERRL No droop 5/5 BUE 5/5 LLE 5/5 RLE aside from 4-/5 right TA and EHL Dressing CDI Appropriate Neuro Check Frequency Ordered: Yes
[2017-05-20] MEDS ORDERED: DIAZEPAM 10 MG/2 ML SYR IVP PRN (17:17)
[2017-05-20] MEDS ORDERED: DIAZEPAM 10 MG/2 ML SYR ONE (17:20)
[2017-05-20] MEDS: GABAPENTIN 300 MG CAP PO SCH (19:53)
[2017-05-20] MEDS: LISINOPRIL 5 MG TAB PO SCH (19:54)
--- NOTE | 2017-05-20 20:29 | GCON ---
[f rep st] CONSULTATION DATE OF CONSULTATION: 05/20/2017 REASON FOR CONSULTATION: I was asked by Dr. Still to see regards to his fever. HISTORY OF PRESENT ILLNESS: This is a 67-year-old man who underwent a L4-5 TLIF on 05/17/[address] Still. Initial postoperative course notable for pain requiring a CLINICAL ACCOUNT MANAGER. He had a fever to 38.6 yest erday in the afternoon. At that point, chest x-ray was ordered, which was normal. He had a urinalys is sent, which was negative for signs of infection. His white count was normal yesterday. Influenza swab was negative. He had a positive RSV PCR. He is coughing, which is mildly productive. He brain tionally complained of a headache, which improves when he is lying down. He additionally complains o f some left lower quadrant pain, which started late yesterday and has worsened today. He describes t hat it is exquisite, left-sided, radiating to his back. He had a runny bowel movement yesterday. He has no nausea or vomiting. He has had appendicitis in the past, status post appendectomy. That was his only abdominal surgery. PAST MEDICAL/SURGICAL HISTORY: 1. GERD. 2. Hypertension. 3. Appendicitis. 4. Skin cancer removal on his nose. 5. Orthopedic surgery on his knee. MEDICATIONS: Please see medication reconciliation. ALLERGIES: No known drug allergies. SOCIAL HISTORY: He is a dentist. FAMILY HISTORY: Reviewed and noncontributory. REVIEW OF SYSTEMS: A 10-point review of systems is conducted and is negative except per HPI. PHYSICAL EXAMINATION: VITAL SIGNS: Blood pressure is 122/74, heart rate 76, respiration rate 18, sa turating 92% on room air. Temperature is 36.8. GENERAL: The patient is a very pleasant man who is resting comfortably in mild distress. HEENT: Shows him to be normocephalic, atraumatic. CARDIOVASC ULAR: Regular rate and rhythm. No murmurs, rubs, or gallops. PULMONARY: Lungs are clear to auscul tation bilaterally. ABDOMEN: Soft. He has normal bowel sounds. He is tender to palpation on the l eft side with mild rebound tenderness. SKIN: Shows no rash. : Shows no Reid. NEUROLOGIC: Candace ws him to be alert and oriented x3. He is moving all extremities. PSYCHIATRIC: Shows a normal mood and affect. LABORATORY DATA: Reviewed from yesterday and show a white count of 8.4. Basic metabolic panel is no rmal. Creatinine is 1.0. Urinalysis is negative. RSV positive. DATA: 1. I reviewed his chart. 2. I personally viewed and interpreted his chest x-ray. This is normal with no acute infiltrates. IMPRESSION: 1. Fever. 2. Left-sided abdominal pain. 3. Respiratory syncytial virus positive. 4. Status post L4-5 TLIF with hardware removal, postoperative day #3. 5. Headache, possible cerebrospinal fluid leak. PLAN: 1. CT of abdomen and pelvis, given fever and left-sided abdominal pain. 2. Contact precautions for RSV, may be the source of his fever. 3. Agree with re-exploration by Neurosurgery for possible CSF leak. Postoperative infection seems l ess likely. 4. Check laboratories to evaluate for white count, worsening hematocrit, LFTs, lipase, lactate. 5. Follow blood cultures drawn by Neurosurgery. Thank you for involving hospital medicine in the care of the patient. We will continue to follow mesha carroll. /[id number]/MODL
[2017-05-20] MEDS: ceFAZolin 2 GM/DEXTROSE 100 ML IV SCH (21:24)
[2017-05-20 23:41] VITALS: RESP 16
--- NOTE | 2017-05-21 04:10 | GOP ---
[f rep st] OPERATIVE REPORT DATE OF OPERATION: 05/20/2017 SURGEON: Val Still MD NEUROSURGEON: Val Still MD. COMMERCIAL GREEN BUILDING DESIGNER: Yuki Foster, Nurse Practitioner. PREOPERATIVE DIAGNOSIS: 1. Possible cerebrospinal fluid leak following a transforaminal lumbar interbody fusion. 2. Severe positional headaches. POSTOPERATIVE DIAGNOSIS: 1. Severe positional headaches. 2. There is no evidence of cerebral spinal fluid leak. PROCEDURE PERFORMED: Exploration of lumbar fusion. [id number] FINDINGS: ESTIMATED BLOOD LOSS: 50 cc. 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 The surgery went very well. At the end of the surgery, we increased the lordosis of his lumbar spine at the L4 segment by compressing between the top 2 screws and we got very good lordosis. However, when we did so, there was significant patulousness of his dura. His dura tended to bulge through the laminectomy defect. We ensured the edges of the laminectomy defect were indeed smooth, but there was definitely dura bulging through them. I was very happy with the alignment of the spine and I chose to allowed to remain so. He did well Saturday evening and then on Saturday , and then yesterday on Saturday, he developed severe positional headaches. He did develop a low-grade fever and was generally feeling worse, and the headaches went away when he laid flat. He clinically appeared to have a CSF leak. There was no leakage of fluid from this wound. Medicine saw the patient. He was having some constipation and he was also diagnosed with respiratory syncytial virus and placed on contact precautions. I suggested re- exploring the wound given the clinical situation and his complaint. He understood the risks of the procedure. He also was consented for possible lumbar drain placement. DESCRIPTION OF PROCEDURE: The patient was taken to the operating room, placed in the supine position. General anesthesia was begun. He was flipped prone onto the Dusty table. Care was taken to pad all points of contact. He was sterilely prepped and draped. The prior Steri-Strips were removed from the skin. He had some superficial ulceration lateral to the incision itself. We prepped 4 separate times. He was sterilely draped. We then opened the prior incision by cutting the sutures, and there was no spinal fluid present. We opened the fascial sutures and no spinal fluid was seen. In the epidural space , there was simply organized hematoma. We went down to the area of the dura where we had the greatest clinical suspicion, where there was the most significant dural bulging through the laminectomy defect, and there was a small piece of Gelfoam that we had placed there to help prevent abrasion of the dura. This was removed, and there was absolutely no leakage of fluid. He was Valsalvae to 35, and there was no leakage of spinal fluid and no dural defect. We then enlarged his laminotomy opening around the arch of L5, as well as along the inferior arch of L4, and then investigated the entire area including the nerve root sleeve on the left-hand side where the TLIF was performed. We never encountered any spinal fluid whatsoever and we Valsalvae to 35 four separate times, and this was all done under the operating microscope. There was absolutely no evidence of leakage. We then irrigated with antibiotic saline solution and then closed the incision in multiple layers using Vicryl sutures. A running PDS was placed in the skin itself. We placed an extra wide dressing on to help prevent the Steri-Strips from burning the skin edges once again. There were no complications. COMPLICATIONS: None. /[id number]/MODL MTDD
[2017-05-21] MEDS: ACETAMINOPHEN 500 MG TAB PO SCH (05:31)
[2017-05-21] MEDS: ceFAZolin 2 GM/DEXTROSE 100 ML IV SCH (05:32)
[2017-05-21 07:45] VITALS: BP 95/62; PULSE 79; TEMP 98.4; O2SAT 97
--- NOTE | 2017-05-21 08:19 | NEUSURGPN ---
Date of Surgery: 05/20/17 Post Op Day: 1 Assessment/Plan: Assessment: 67 yr old male that is s/p L4-5 TLIF with hardware removal and PSF L4-S1 for right foot drop and left leg pain POD#4, Exploration of wound and laminotomy L4-5 POD #1 Plan: -Pain management, patient tolerating [place], denies any headaches sitting up in chair -Patient did not have a CSF leak seen inta-op, patient may dc later today pending therapies recs and if continues to tolerate PO medications -Patient is positive for RSV, on droplet precautions -patient had llq pain, had BM this am and feels this has resolved -Dressing CDI-used paper tape due to skin break down present at some of the steri strip sites -PT/OT -Wear brace when out of bed, patient already has brace -Please call neurosurgery with any questions/concerns Subjective: Sitting in chair, denies any headaches, pain well controlled Objective: AxO x3 PERRL No droop 5/5 BUE 5/5 LLE 5/5 RLE aside from 4-/5 right TA and EHL Dressing CDI, quarter size drainage at proximal end Neuro Check Frequency: per routine Urinary Catheter in Place: No Catheter Insertion Date: 05/17/17 - Physician Discussed Patient with .: Cheko Patient Seen by : Cheko Neurosurgery Physical Exam - Vitals, I&O, Labs I and O 18 18 05/22/17 05:59 05:59 05:59 Intake Total 250 3105 Output Total 600 1150 Balance -350 1955 Weight 69.853 kg Intake: Oral (ml) 250 1050 IV Intake (ml) 2054 Output: Urine (ml) 600 1100 Toilet 200 1100 Urinal 400 Estimated Blood Loss (ml) 50 Other: Intake Quantity Yes Yes Sufficient Number of Voids Toilet 1 Number of Stools Toilet 1 1 1 Vital Signs Temp Pulse Resp BP Pulse Ox 36.9 C 79 16 95/62 L 97 05/21/17 07:42 05/21/17 07:42 05/21/17 07:42 05/21/17 07:42 05/21/17 07:42 Laboratory Results 05/20/17 12:53 05/20/17 12:53 ICD10 Worksheet Patient Problems: Problems Problem Status Onset Chest pain Acute
[2017-05-21] MEDS: OMEPRAZOLE 20 MG PO SCH (09:16)
[2017-05-21] MEDS: FAMOTIDINE 20 MG TAB PO SCH (09:17)
[2017-05-21] MEDS: SENNOSIDES/DOCUSATE SODIUM TAB PO SCH ×2 (09:17→10:12)
--- NOTE | 2017-05-21 11:13 | HOSPPROG ---
Hospitalist Progress Note Assessment/Plan: Impression: 1. abd pain d/t constipation 2. fever d/t RSV infection 3. s/p lumbar fusion, re-exploration Plan: - bowel regimen - supportive care for RSV (rest, hydration) - ok to dc from IM perspective Subjective: s/p exploration with no CSF leak; NAVARRETE gone; abd pain resolved after BM Objective: Vital Signs Temp Pulse Resp BP Pulse Ox 36.9 C 79 16 95/62 L 97 05/21/17 07:42 05/21/17 07:42 05/21/17 07:42 05/21/17 07:42 05/21/17 07:42 Laboratory Results 05/20/17 12:53 05/20/17 12:53 05/20/17 05/21/17 05/22/17 05:59 05:59 05:59 Intake Total 250 3105 480 Output Total 600 1150 Balance -350 8185 480 op note reviewed ICD10 Worksheet Patient Problems: Problems Problem Status Onset Chest pain Acute
--- NOTE | 2017-05-21 13:30 | ASDISCHSUM ---
Discharge Information Plan Status:Home with No Needs Medically Cleared to Leave: Discharge Date:05/21/2017 12:25 PM CM D/C Disposition:Home, Routine, Self-Care ADT D/C Disposition:Home, Routine, Self-Care Projected Discharge Date:05/21/2017 12:25 PM Transportation at D/C:Family Discharge Delay Reason: Follow-Up Date:05/21/2017 12:25 PM Discharge Slot: Final Diagnosis: Placement Information Patient Contact Information Contact Name:ELISHA Relationship:Sister Address: Work Phone: City:[place] Alternate Phone: [facility]/[employer] Code:PRIYANKA Email: Financial Information Financial Class: Primary Plan Desc:MEDICARE INPATIENT Primary Plan Number:[id number] Secondary Plan Desc:[employer]/MDR SUPPLEMENT Secondary Plan Number:[id number] Assessment Information [facility] CM Progress Note CM Note CM Note Notes: Pt is s/p L4-5 TLIF and hardware removal. PT has cleared. Anticipate d/c with no CM needs but will continue to follow for any change in needs. Date Signed: 05/18/2017 03:18 PM Electronically Signed By:ORI Brantley LACE LACE Length of stay for Answers: 3 days current admission Acuity / Level of Answers: Yes Care: Did the patient have an inpatient admission? # of Emergency department Answers: 0 visits in the last 6 months Score: 6 Date Signed: 05/19/2017 01:36 PM Electronically Signed By:Beba Pereira [facility] Progress Note CM Note CM Note Notes: Patient was to discharge home today but found to have a fever so discharge canceled Met with patient to discuss potential discharge needs, patient has support from at home and denies additional services. IM signed and placed in chart. CM will continue to follow for any needs. Current discharge plan: Home independent with family support. Date Signed: 05/19/2017 03:48 PM Electronically Signed By:Beba Pereira Intervention Information Intervention Type:*IM-Signed Date of Service:05/19/2017 01:36 PM Patient Type:Inpatient Staff Member:Beba Pereira Hours: Discipline: Severity: Comment:Placed in chart. Intervention Type:*IM-Signed Date of Service:05/21/2017 09:20 AM Patient Type:Inpatient Staff Member:Arianna Cárdenas Hours: Discipline: Severity: Comment:
== END 2017-05-21 12:25 | disposition home or self-care (01) | DRG 455 ==
LOC: F3N 05:43 → F2N 05-20 15:09
PROVIDERS: ADMIT Neurological Surgery; ATTEND Neurological Surgery
PROC: 0ST20ZZ Resection of Lumbar Vertebral Disc, Open Approach (ICD-10-PCS; principal; 2017-05-17 07:30)
PROC: 0SP304Z Removal of Internal Fixation Device from Lumbosacral Joint, Open Approach (ICD-10-PCS; principal; 2017-05-17 07:30)
PROC: 8E0WXBZ Computer Assisted Procedure of Trunk Region (ICD-10-PCS; principal; 2017-05-17 07:30)
PROC: 0SG0071 Fusion of Lumbar Vertebral Joint with Autologous Tissue Substitute, Posterior Approach, Posterior Column, Open Approach (ICD-10-PCS; principal; 2017-05-17 07:30)
PROC: 01NB0ZZ Release Lumbar Nerve, Open Approach (ICD-10-PCS; principal; 2017-05-17 07:30)
PROC: 0SG30Z1 (ICD-10-PCS; principal; 2017-05-17 07:30)
PROC: 0SG00AJ Fusion of Lumbar Vertebral Joint with Interbody Fusion Device, Posterior Approach, Anterior Column, Open Approach (ICD-10-PCS; principal; 2017-05-17 07:30)
PROC: 4A10X4G Monitoring of Central Nervous Electrical Activity, Intraoperative, External Approach (ICD-10-PCS; principal; 2017-05-17 07:30)
PROC: 3E0V0GB Introduction of Recombinant Bone Morphogenetic Protein into Bones, Open Approach (ICD-10-PCS; principal; 2017-05-17 07:30)
PROC: 00JV0ZZ Inspection of Spinal Cord, Open Approach (ICD-10-PCS; 2017-05-20)
DX: M51.16 Intervertebral disc disorders with radiculopathy, lumbar region (principal); M21.371 Foot drop, right foot; Z98.1 Arthrodesis status; R51 Headache; J00 Acute nasopharyngitis [common cold]; B97.4 Respiratory syncytial virus as the cause of diseases classified elsewhere; K59.00 Constipation, unspecified; K21.9 Gastro-esophageal reflux disease without esophagitis; I10 Essential (primary) hypertension; Z85.828 Personal history of other malignant neoplasm of skin
CPT/HCPCS: 97116-GP; 97161-GP; 97165-GO; 97530-GP; 97535-GO; C1713; G8978-GP-CJ; G8979-GP-CI; G8980-GP-CI; G8987-GO-CI; G8988-GO-CI; G8989-GO-CI; J0171; J0690; J1100; J1170; J2250; J2370; J2405; J2704; J2765; J3010; Q9967

== ENCOUNTER 2017-06-01 07:27 | Emergency (ER) | payer OTHER, MEDICARE ==
[2017-06-01 07:38] VITALS: TEMP 98.2
--- NOTE | 2017-06-01 07:54 | EDPHY ---
H & P Time Seen by Provider: 06/01/17 07:40 HPI/ROS: CHIEF COMPLAINT: Right leg pain and numbness HISTORY OF PRESENT ILLNESS: Patient had spinal fusion at L4-L5 on May 20 of this [address] by Dr. Fuad Still. He was doing better and his left leg symptoms have improved quite a bit. Over the last 2 days he is having worse right leg pain which starts in his hip and shoots down his right leg associated with numbness in the foot. He had a foot drop before the surgery and feels it is the same or maybe even a little bit worse. Pain is difficult to control even with Maryneal any comes for further evaluation. Not associated with incontinence. No fever. No change in the incision site. REVIEW OF SYSTEMS: Eye: no change in vision ENT: no sore throat Cardiac: no chest pain or syncope Pulmonary: no cough or SOB Abdomen: no vomiting, diarrhea, abdominal pain Musculoskeletal: HPI Skin: no rash Neuro: HPI no headache Constitutional: no fever : no urinary symptoms or incontinence A comprehensive 10 point review of systems is otherwise negative aside from elements mentioned in the history of present illness. PAST MEDICAL HISTORY: Spinal fusion as above. Hypertension, appendectomy Social history: Patient drove himself here General Appearance: Alert and conversant, cooperative. Eyes: No scleral icterus. ENT, Mouth: Normal mucous membranes. Respiratory: Normal respiratory effort, breath sounds equal, lungs are clear to auscultation. Cardiovascular: Regular rate and rhythm. Gastrointestinal: Abdomen is soft and non tender. Neurological: Alert, ambulatory to the room. Mild right foot drop. Patellar reflex is present in 2+ symmetric. Remainder of his lower extremity motor exam is normal except for the right foot drop. Skin: Incision looks clean dry and intact Musculoskeletal: No peripheral edema. Psychiatric: Not agitated. Emergency Department course/MDM: Discussed with Dr. Still prior to the patient's arrival, plan for MRI with and without contrast. Patient declines pain medication. 911: MRI per Juan Manuel shows 2.5 x 3.5 cm fluid collection in the surgical bed on the right side, Neurosurgery notified will review the images. 917: Paulo from Neurosurgery here in person to see patient. Recommendation from Neurosurgery is to send the patient home, prescriptions were written by them, follow-up as outlined by them. Smoking Status: Former smoker Constitutional: Initial Vital Signs Temperature (C) 36.8 C 06/01/17 07:34 Heart Rate 77 06/01/17 07:34 Respiratory Rate 18 06/01/17 07:34 Blood Pressure 139/83 H 06/01/17 07:34 O2 Sat (%) 95 06/01/17 07:34 O2 Delivery Mode Room Air Allergies/Adverse Reactions: No Known Allergies Allergy (Verified 06/01/17 07:34) Home Medications: Medication Instructions Recorded Lisinopril [Zestril 5 mg (*)] 5 mg PO HS 09/25/16 Omeprazole [Prilosec 20 mg] 20 mg PO DAILY 09/25/16 Methocarbamol [Robaxin 750 mg (*)] 750 mg PO QID PRN #60 tab 05/19/17 Sennosides/Docusate Sodium 1 - 2 tab PO BID #30 tab 05/19/17 [Senokot-S] Hydrocodone/APAP 5/325 [Maryneal 1 - 2 tab PO Q4HRS PRN #60 tab 05/21/17 5/325 (*)] Gabapentin 06/01/17 Medical Decision Making - Diagnostics Imaging: Discussed imaging studies w/ soliciting freight agent Radiologist Differential Diagnosis: Differential considered including but not limited to postoperative fluid collection abscess or hematoma, local inflammation, spinal fluid leak, postoperative other infection or inflammation. - Data Points Laboratory Results: 06/01/17 07:58 POC Hgb 13.3 gm/dL L gm/dL (13.7-17.5) POC Hct 39 % L % (40-51) POC Sodium 140 mEq/L mEq/L (135-145) POC Potassium 4.2 mEq/L mEq/L (3.3-5.0) POC Chloride 105 mEq/L mEq/L (97-110) POC BUN 23 mg/dL mg/dL (7-23) POC Creatinine 1.2 mg/dL mg/dL (0.7-1.3) POC Glucose 94 mg/dL mg/dL (70-100) Point of Care Test Results: 06/01/17 07:58 POC Sodium 140 POC Potassium 4.2 POC Chloride 105 POC BUN 23 POC Creatinine 1.2 POC Glucose 94 Departure - Departure Disposition: Home, Routine, Self-Care Clinical Impression: Right leg pain, postoperative fluid collection Condition: Good Instructions: Magnetic Resonance Imaging (ED) Additional Instructions: Instructions per neurosurgery Referrals: Helio Reyes MD [Primary Care Provider] - As per Instructions Dulce Still MD [Medical Doctor] - As per Instructions
[2017-06-01] MEDS ORDERED: GADOBUTROL 10 ML VIAL IVP ONE (08:18)
[2017-06-01 09:44] VITALS: BP 132/92; PULSE 71; RESP 16; O2SAT 94
--- NOTE | 2017-06-01 12:01 | GCON ---
[f rep st] CONSULTATION CHIEF COMPLAINT: Right leg pain and weakness.. HISTORY OF PRESENT ILLNESS: Mr. Lujan is a 67 year-old male who underwent an L4-5 decompression and fusion with Dr. Still on 05/17/2017. He was doing well for approximately a week, but then developed this gradual progressive worsening pain in his right posterior hamstring, buttock, with pain radiating towards his calf, lucia and top of his foot. This has been associated with some progressive weakness over the course of the last week. He is not having left leg pain, ataxia, bowel and bladder problems, or fevers. He has had some chills that have been off and on over the last week. He did have a similar episode when he had his previous L5-S1 fusion approximately 13 years ago. He was originally treated for a recurrent fluid collection with a Medrol Dosepak, which did not improve his symptoms, but he underwent a needle aspiration by Interventional Radiology, which resolved his recurrent radicular pain. PAST MEDICAL HISTORY: Hypertension. CURRENT MEDICATIONS: Lisinopril. ALLERGIES: No known drug allergies. FAMILY HISTORY: Patient has no family history of spine problems. 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 He drinks alcohol occasionally but denies smoking or drug use. REVIEW OF SYSTEMS: Negative. PHYSICAL EXAMINATION: GENERAL: Patient is a 67-year-old male, walking around the emergency room in a moderate amount of distress. HEENT: Head, eyes, ears, nose, and throat are negative to drainage. EXTREMITIES: Extremities are pink warm and dry. NEUROLOGIC: The patient is awake, alert, oriented x4. Pupils are equal, round, and reactive to light. Extraocular motions are intact. There is no evidence of facial droop. Tongue and uvula are midline. His motor strength is 5/5 in his arms and legs with the exception of his right dorsiflexors and extensor hallucis longus, which is 3/5. Sensation is grossly intact to light touch in his arms and legs. Deep tendon reflexes are 2+ out of 4 in the bilateral biceps, triceps, brachioradialis, patellar, and Achilles. There is a negative Paz's with no clonus. SKIN: His lumbar incision is clean, dry, and intact with no erythema, induration or drainage. IMAGING: An MRI of the lumbar spine [facility] on 2017 shows postoperative changes from the L4-5 fusion. There is a moderate sized posterior paraspinal fluid collection causing moderate compression of the thecal sac. There is no significant rim enhancement to suggest epidural or postinfectious abscess. IMPRESSION: This is a 67-year-old male with right L5 radiculitis after an L4-5 decompression and fusion. He is neurologically stable. PLAN: All the above issues discussed in detail with the patient. This was discussed with Dr. Fuad Still. At this point time, it was discussed with Mr. Lujan that he has the option of being admitted to consider needle aspiration of this right L4-5 fluid collection with Interventional Radiology. The other option will be to treat him conservatively with a Medrol Dosepak and some Neurontin, and keep a close eye on him. If he was not improving, we would then consider intervention in the next several days if his symptoms did not improve. Mr. Lujan would like to go home and see if the increased Neurontin and oral steroids would help with his symptoms. It was discussed that we will pass the message to Dr. Still and he should call us if at any point in time he goes home and his symptoms worsen. Mr. Lujan was agreeable with the plan. /[id number]/MODL MTDD
== END 2017-06-01 09:43 | disposition home or self-care (01) ==
DX: M79.604 Pain in right leg (principal); I10 Essential (primary) hypertension; Z87.891 Personal history of nicotine dependence
CPT/HCPCS: 72158; 99285; A9585; 82947-QW

== ENCOUNTER 2018-07-22 13:26 | Observation (INO) | payer OTHER, MEDICARE ==
[2018-07-22 14:23] LABS: PLATELET COUNT 275 10^3/uL (150-400)
[2018-07-22] MEDS ORDERED: IOPAMIDOL (ISOVUE 370) 100 ML BTL IV ONE (14:23)
--- NOTE | 2018-07-22 14:52 | EDPHY ---
H & P Stated Complaint: L sided numbness Time Seen by Provider: 07/22/18 14:17 HPI/ROS: CHIEF COMPLAINT: Left-sided numbness and weakness HISTORY OF PRESENT ILLNESS: 68-year-old male with hypertension presents with left-sided numbness and weakness. Sudden onset of left-sided numbness yesterday evening at 10:30 p.m.. The numbness lasted approximately 45 min and then completely resolved. He was asymptomatic this morning when he awoke. He was working in his office at noon, when he had sudden onset of recurrent symptoms. He was holding a dental instrument and felt that his left upper extremity was weak. He did not stand up or walk is and is unsure if his left leg was weak. The symptoms lasted approximately 45 min this afternoon and have completely resolved. No prior history of CVA or TIA. No recent head or neck trauma. REVIEW OF SYSTEMS: complete 10 point ROS reviewed and is negative except for the noted elements in the HPI - Personal History Current Tetanus/Diphtheria Vaccine: Yes Current Tetanus Diphtheria and Acellular Pertussis (TDAP): Yes - Medical/Surgical History Hx Asthma: No Hx Chronic Respiratory Disease: No Hx Diabetes: No Hx Cardiac Disease: No Hx Renal Disease: No Hx Cirrhosis: No Hx Alcoholism: No Hx HIV/AIDS: No Hx Splenectomy or Spleen Trauma: No Other PMH: htn. appy. Lumbar Fusion 06/02. toal R knee 09/30 - Social History Smoking Status: Former smoker - Physical Exam Exam: General Appearance: Alert, pleasant Eyes: Pupils equal and round, no conjunctival pallor ENT, Mouth: Mucous membranes moist Neck: Normal inspection Respiratory: Lungs are clear to auscultation Cardiovascular: Regular rate and rhythm Gastrointestinal: Abdomen is soft and nontender Neurological: Alert, oriented x3, cranial nerves II through XII intact, motor 5 /5, sensory intact to light touch, normal gait Skin: Warm and dry, no rash Extremities: Nontender, no pedal edema Psychiatric: Mood and affect normal Constitutional: Initial Vital Signs Temperature (C) 36.7 C 07/22/18 13:37 Heart Rate 65 07/22/18 13:37 Respiratory Rate 16 07/22/18 13:37 Blood Pressure 176/119 H 07/22/18 13:37 O2 Sat (%) 96 07/22/18 13:37 O2 Delivery Mode Room Air Allergies/Adverse Reactions: No Known Allergies Allergy (Verified 07/22/18 13:36) Home Medications: Medication Instructions Recorded Lisinopril [Zestril 5 mg (*)] 5 mg PO HS 09/25/16 Acetaminophen [Tylenol 325mg (*)] 325 mg PO Q6 PRN 07/22/18 Ibuprofen [Motrin (*)] 200 mg PO Q6H PRN 07/22/18 Omeprazole 20 mg PO DAILY 07/22/18 Medical Decision Making - Diagnostics EKG Interpretation: EKG interpreted by me reveals sinus bradycardia, rate 49, no ST or T segment changes. Interpretation: Otherwise normal EKG Imaging Results: CT scan of the brain read by the radiologist is unremarkable. Imaging: Discussed imaging studies w/ order desk caller Radiologist ED Course/Re-evaluation: This patient presents with 2 episodes of left-sided weakness and numbness., now resolved. NIH stroke score is 0. Presentation consistent with TIA. Stat EKG reveals no evidence of ischemia or dysrhythmia. CT scan of the brain reveals no evidence of hemorrhage or infarct. Aspirin 325 mg orally given. alarm security or surveillance monitor revealed normal sinus rhythm throughout. The patient was stable throughout his emergency department stay. Neurologic exam remained normal. He will be admitted to the hospitalist service for further evaluation of TIA. Differential Diagnosis: includes but not limited to hypoglycemia, electrolyte abnormality, head injury, ICH, tumor, CVA, and dysrhythmia. - Data Points Laboratory Results: Laboratory Results 07/22/18 14:03 07/22/18 14:03 Medications Given: Aspirin (Aspirin) 81 mg PO DAILY MAYRA Stop: 01/19/19 08:59 Last Admin: 07/23/18 07:32 Dose: 81 mg Lisinopril (Zestril) 10 mg PO HS MAYRA Stop: 01/18/19 21:29 Last Admin: 07/22/18 21:35 Dose: 10 mg Pantoprazole Sodium (Protonix) 40 mg PO DAILY MAYRA Stop: 01/19/19 08:59 Last Admin: 07/23/18 07:32 Dose: 40 mg Discontinued Medications Aspirin (Aspirin) 325 mg PO EDNOW ONE Stop: 07/22/18 15:51 Last Admin: 07/22/18 15:56 Dose: 325 mg Point of Care Test Results: Chemistry 07/22/18 07/22/18 14:28 14:22 POC Sodium 143 mEq/L mEq/L (135-145) POC Potassium 3.9 mEq/L mEq/L (3.3-5.0) POC Chloride 110 mEq/L mEq/L (97-110) POC Total CO2 21 mEq/L L mEq/L (22-31) POC BUN 23 mg/dL mg/dL (7-23) POC Creatinine 1.3 mg/dL mg/dL (0.7-1.3) POC Glucose 89 mg/dL mg/dL (70-100) POC Troponin I 0.00 ng/mL ng/mL (0.00-0.08) ISTAT H&H 07/22/18 14:28 POC Hgb 15.0 gm/dL gm/dL (13.7-17.5) POC Hct 44 % % (40-51) Departure - Departure Disposition: [facility] Inpatient Acute Clinical Impression: Transient cerebral ischemia Qualifiers: Transient cerebral ischemia type: carotid artery syndrome (hemispheric) Qualified Code(s): G45.1 - Carotid artery syndrome (hemispheric) Condition: Good
[2018-07-22] MEDS ORDERED: ASPIRIN 325 MG TAB PO ONE (15:50)
[2018-07-22] MEDS ORDERED: ONDANSETRON 4 MG/2 ML VIAL IVP PRN (16:27)
[2018-07-22] MEDS ORDERED: ONDANSETRON DISINTEGRATING 4 MG TAB PO PRN (16:27)
[2018-07-22] MEDS ORDERED: ACETAMINOPHEN 325 MG TAB PO PRN (16:27)
[2018-07-22] MEDS ORDERED: LABETALOL HCL 5 MG/ML 20 ML MDV IVP PRN (16:29)
[2018-07-22] MEDS ORDERED: GADOBUTROL 10 ML VIAL IVP ONE (16:32)
--- NOTE | 2018-07-22 16:44 | PDGENHP ---
History and Physical - Chief Complaint LUE numbness - History of Present Illness 68 yo male with h/o hypertension presents to ED with LUE, LLE and left ebenezer- oral paresthesias. His symptoms started last night before bed and lasted about an hour. He did not seek care, but went to sleep. 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 While doing a procedure early this afternoon, he again developed focal left ebenezer -oral "pins and needles". This spread down his left arm and left leg. He had difficulty holding his dental instrument due to decreased sensation and described a slightly weak plant mechanic, which he thinks was more related to the decreased sensation. He otherwise denied motor weakness. He had no speech difficulties or vision changes. He denies headache. He is treated for hypertension with Lisinopril 5 mg daily. He discussed his symptoms with a colleague and ultimately a staff member in his office drove him to the ED. In the ED, a head CT is negative for acute abnormality. His symptom resolved after 45 minutes and he is completely symptom free at this time. He is admitted for TIA workup. History Information - Allergies/Home Medication List Allergies/Adverse Reactions: No Known Allergies Allergy (Verified 07/22/18 13:36) Home Medications: Lisinopril [Zestril 5 mg (*)] 5 mg PO HS 09/25/16 [Last Taken 05/16/17 21:00] Omeprazole 07/22/18 [Last Taken Unknown] I have personally reviewed and updated: family history, medical history, social history, surgical history - Past Medical History hypertension Additional medical history: Lumbar stenosis - Surgical History Additional surgical history: L5-S1 fusion over 10 yrs ago. L4-5 TLFT with hardware removal of L5-S1 and fusion of L4-S1 in 2018 - Family History Positive for: CAD Additional family history: brother of aortic aneurysm. 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 Review of Systems Review of Systems: ROS: 10pt was reviewed & negative except for what was stated in HPI & below Physical Exam Physical Exam: Temp Pulse Resp BP Pulse Ox 36.7 C 65 16 176/119 H 96 07/22/18 13:37 07/22/18 13:37 07/22/18 13:37 07/22/18 13:37 07/22/18 13:37 Constitutional: no apparent distress Eyes: PERRL Ears, Nose, Mouth, Throat: moist mucous membranes Cardiovascular: regular rate and rhythym, no murmur, rub, or gallop Respiratory: no respiratory distress, clear to auscultation Gastrointestinal: normoactive bowel sounds, soft, non-tender abdomen Skin: warm Musculoskeletal: full muscle strength Neurologic: AAOx3, CN II-XII Intact Psychiatric: interacting appropriately Lab Data & Imaging Review 07/22/18 14:03 07/22/18 14:03 WBC 5.88 10^3/uL (3.80-9.50) 07/22/18 14:03 RBC 5.00 10^6/uL (4.40-6.38) 07/22/18 14:03 Hgb 14.8 g/dL (13.7-17.5) 07/22/18 14:03 POC Hgb 15.0 gm/dL (13.7-17.5) 07/22/18 14:28 Hct 44.2 % (40.0-51.0) 07/22/18 14:03 POC Hct 44 % (40-51) 07/22/18 14:28 MCV 88.4 fL (81.5-99.8) 07/22/18 14:03 MCH 29.6 pg (27.9-34.1) 07/22/18 14:03 MCHC 33.5 g/dL (32.4-36.7) 07/22/18 14:03 RDW 12.8 % (11.5-15.2) 07/22/18 14:03 Plt Count 275 10^3/uL (150-400) 07/22/18 14:03 MPV 8.5 fL (8.7-11.7) L 07/22/18 14:03 Neut % (Auto) 53.7 % (39.3-74.2) 07/22/18 14:03 Lymph % (Auto) 32.1 % (15.0-45.0) 07/22/18 14:03 Bonner % (Auto) 9.0 % (4.5-13.0) 07/22/18 14:03 Eos % (Auto) 3.7 % (0.6-7.6) 07/22/18 14:03 Baso % (Auto) 1.2 % (0.3-1.7) 07/22/18 14:03 Nucleat RBC Rel Count 0.0 % (0.0-0.2) 07/22/18 14:03 Absolute Neuts (auto) 3.15 10^3/uL (1.70-6.50) 07/22/18 14:03 Absolute Lymphs (auto) 1.89 10^3/uL (1.00-3.00) 07/22/18 14:03 Absolute Monos (auto) 0.53 10^3/uL (0.30-0.80) 07/22/18 14:03 Absolute Eos (auto) 0.22 10^3/uL (0.03-0.40) 07/22/18 14:03 Absolute Basos (auto) 0.07 10^3/uL (0.02-0.10) 07/22/18 14:03 Absolute Nucleated RBC 0.00 10^3/uL (0-0.01) 07/22/18 14:03 Immature Gran % 0.3 % (0.0-1.1) 07/22/18 14:03 Immature Gran # 0.02 10^3/uL (0.00-0.10) 07/22/18 14:03 POC Sodium 143 mEq/L (135-145) 07/22/18 14:28 Sodium 139 mEq/L (135-145) 07/22/18 14:03 POC Potassium 3.9 mEq/L (3.3-5.0) 07/22/18 14:28 Potassium 4.2 mEq/L (3.5-5.2) 07/22/18 14:03 POC Chloride 110 mEq/L (97-110) 07/22/18 14:28 Chloride 110 mEq/L (97-110) 07/22/18 14:03 Carbon Dioxide 20 mEq/l (22-31) L 07/22/18 14:03 POC Total CO2 21 mEq/L (22-31) L 07/22/18 14:28 Anion Gap 9 mEq/L (6-14) 07/22/18 14:03 POC BUN 23 mg/dL (7-23) 07/22/18 14:28 BUN 23 mg/dL (7-23) 07/22/18 14:03 Creatinine 1.2 mg/dL (0.7-1.3) 07/22/18 14:03 POC Creatinine 1.3 mg/dL (0.7-1.3) 07/22/18 14:28 Estimated GFR 60 07/22/18 14:03 Glucose 89 mg/dL (70-100) 07/22/18 14:03 POC Glucose 89 mg/dL (70-100) 07/22/18 14:28 Calcium 9.6 mg/dL (8.5-10.4) 07/22/18 14:03 POC Troponin I 0.00 ng/mL (0.00-0.08) 07/22/18 14:22 Visualized and Interpreted EKG results: Yes EKG Interpretation: Positive for: normal sinsus rhythm Assessment & Plan Assessment: TIA - recurrent symptoms last night and again today, each lasting 45-60 minutes. Symptoms have resolved. He received full dose ASA. -admit to telemetry -MRI/MRA pending -check echo -cont daily ASA -check lipid status -permissive hypertension for now, prn Labetalol -neurology consult in am Hypertension - poor control -resume home Lisinopril in am, likely warrants up-titration Full code Dispo - obs
[2018-07-22] MEDS ORDERED: LISINOPRIL 10 MG TAB PO SCH ×2 (21:12→21:30)
--- NOTE | 2018-07-22 21:14 | CPEKG ---
Test Reason : OPEN Blood Pressure : / mmHG Vent. Rate : 049 BPM Atrial Rate : 049 BPM P-R Int : 174 ms QRS Dur : 105 ms QT Int : 448 ms P-R-T Axes : 049 -16 008 degrees QTc Int : 405 ms Sinus bradycardia Borderline left axis deviation Confirmed by Ami Patel ([id number]) on 07/22/2018 9:14:12 PM Referred By: AMI PATEL Confirmed By:Ami Patel
--- NOTE | 2018-07-23 07:38 | SOAPPROG ---
Downtime Inpatient Late Entry SOAP Note: Patient seen and examined. 3mm basilar aneurysm. He can followup as an outpatient with us at [facility]. There is nothing required at this time for the aneurysm. Fuad Still MD
--- NOTE | 2018-07-23 08:19 | GCON ---
[f rep st] CONSULTATION NEUROSURGICAL CONSULTATION. DATE OF CONSULTATION: 07/23/2018 REASON FOR CONSULTATION: 3 mm basilar tip aneurysm. 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 He is fused at L4-5, L5-S1, but he present ed to the emergency department with complaints of left periorbital onset paresthesias and dense numbn ess and tingling that spread to the left arm and then the left leg. This started last night before b ed and lasted about an hour. This was on the evening of July 21, 2018. They have totally resolved n ow and he had no focal motor weakness. 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 He denied speech or visual changes. PAST MEDICAL HISTORY: Significant for hypertension and lumbar spondylosis. ALLERGIES: None. FAMILY HISTORY: Negative for aneurysm, but a brother does have a history of an aortic aneurysm. His father has a history of myocardial infarction. HOME MEDICATIONS: Lisinopril, omeprazole. 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 He is a fo rmer smoker. He drinks alcohol 1-2 drinks several nights per week. He denies drug use. REVIEW OF SYSTEMS: He denies any numbness, tingling now or any weakness. He has no leg pain in th er leg. His right leg especially is doing well. He had a lot of difficulty with this after his last lumbar fusion. He was able to successfully go fly fishing on the [employer] this past weekend. OBJECTIVE: VITAL SIGNS: Blood pressure 144/96, heart rate 55, respiratory rate 18, saturation 93%, temperature 36.6. MUSCULOSKELETAL: His strength in his deltoids, biceps, triceps, wrist extensors, casket coverer, hand intrinsics, tibialis anterior, plantar flexors, extensor hallucis longus is 5/5 bilaterall y. His sensation is intact in both arms. DIAGNOSTIC REVIEW: MRA of the brain demonstrates an incidental 3 mm basilar apex aneurysm. ASSESSMENT: The patient is a 68-year-old with an incidentally discovered basilar tip aneurysm that s hould not be related to his current transient ischemic attack type symptoms. No further treatment is required for this, but I would like for him to follow up with my partner, Dr. Lawrence Farmer, in the [place] about 3-4 weeks after discharge to arrange for further care of the aneurysm. He may require an outpatient 4 vessel angiography to evaluate it further, but I am differential Dr. Farmer in this rega rd. There is no contraindication to aspirin anti-platelet therapy, and if this is desired for his TI A symptoms we approve. /[id number]/MODL
[2018-07-23] MEDS ORDERED: PANTOPRAZOLE SODIUM 40 MG TAB PO SCH (09:00)
[2018-07-23] MEDS ORDERED: ASPIRIN 81 MG CHEWABLE TAB PO SCH (09:00)
[2018-07-23] MEDS ORDERED: LISINOPRIL 5 MG TAB PO SCH (09:00)
[2018-07-23] MEDS ORDERED: IOPAMIDOL (ISOVUE 370) 100 ML BTL IV ONE (09:16)
--- NOTE | 2018-07-23 11:06 | ASMTCMCOM ---
CM Note CM Note Notes: Pt in for TIA, resides alone. Nsg consulted, signed off. Neurology consult ordered. VAULT ATTENDANT clear pt for home. Anticipate pt will d/c home when medically stable. No CM d/c needs identified. CM available for changes/needs. Date Signed: 07/23/2018 11:06 AM Electronically Signed By:ORI Negrete
[2018-07-23 11:24] VITALS: BP 150/95
--- NOTE | 2018-07-23 13:19 | ECHO ---
[email or web address] [address] Main: [phone] Echocardiography Examination Transthoracic Name: ADRIANA MCADAMS MR#: [id number] Study Date: 07/23/2018 Study Time: 11:30 AM Date of : 1950 Age: 68 year(s) Height: 165.1 cm (65 in.) Weight: 62.6 kg (138 lb.) BSA: 1.69 m2 Gender: Male Examination: Echo Contrast: Image Quality: Rhythm: Normal sinus rhythm Heart Rate: 56 bpm BP: 150 mmHg/95 mmHg Indication: TIA, Left sided tingling Procedure Staff Referring Physician: Active Directory Specialist: Jaison Erazo RDCS Reading Physician: Romeo Villanueva MD Requesting Provider: Indication: TIA, Left sided tingling Measurements Chambers AV/MV Label Value Normal Value Label Value Normal Value LVOT Vmax 0.85 m/s (0.7m/s - 1.1m/s) AV PGmax 5 mmHg LVOTd 1.9 cm (1.9cm - 2.1cm) AV PGmean 3 mmHg LVOT VTI 18 cm (18cm - 22cm) AV Vmax 1.1 m/s LVDd, 2D 5 cm (4.2cm - 5.9cm) ANANTH (Vmax) 2.2 cm2 LVDs, 2D 3.1 cm (2.1cm - 4cm) ANANTH (VTI) 2 cm2 IVSd, 2D 0.9 cm (0.6cm - 1.1cm) MV E Vmax 0.5 m/s LVPWd, 2D 1.2 cm (0.6cm - 1cm) MV A Vmax 0.56 m/s LVEF, 2D 68 % (54% - 74%) MV E/A 0.89 LVOT PGmean 2 mmHg MV E/E' lateral 8.2 LVOT Vmean 0.58 m/s MV E/E' septal 9.2 (0.45 - 1.25) RVDd, 2D 3.1 cm (1.9cm - 3.8cm) MV E' septal 0.05 m/s TAPSE 1.5 cm MV E' lateral 0.06 m/s Additional Vessels MV E/E' mean 9.09 Label Value Normal Value MV E' mean 0.06 m/s AoRoot, MM 3 cm (2.2cm - 3.7cm) TV/PV Label Value Normal Value PV PGmax 2 mmHg PV Vmax, Caliper 0.72 m/s (0.6m/s - 0.9m/s) Patient: ADRIANA MCADAMS Study Date: 07/23/2018 Page 1 of 2 11:30 AM Conclusions Left Ventricle: EF range is estimated at 65 % - 70 %. Mitral Valve: Mitral valve appears structurally normal. Aortic Valve: Aortic leaflets are normal in appearance and function. Findings Left Ventricle: Left ventricle is normal in size. EF range is estimated at 65 % - 70 %. Left ventricle wall thickness is normal. There are no regional wall motion abnormalities. Left ventricular diastolic function parameters are normal. Right Ventricle: Normal size right ventricle. The RV function appears grossly normal. Left Atrium: The left atrium is normal in size. Right Atrium: The right atrium is normal in size. Mitral Valve: Mitral valve appears structurally normal. No mitral regurgitation. No mitral valve stenosis. Aortic Valve: Aortic leaflets are normal in appearance and function. No aortic valve regurgitation. There is no aortic stenosis. Aortic leaflets exhibit no calcification. Tricuspid Valve: Tricuspid valve leaflets are normal in appearance and function. No tricuspid regurgitation. Pulmonic Valve: Pulmonic leaflets are normal in appearance and function. No pulmonic valve regurgitation is evident. Aorta: The aorta is normal. The aortic root size in M-mode measures 3.0 cm. Aorta Measurements AoRoot, MM is 3.0 cm. IVC: The inferior vena cava is normal in size. Pericardium: No pericardial effusion. Exam Details Procedure Ordered: Echo (No Signature Object) Patient: ADRIANA MCADAMS Study Date: 07/23/2018 Page 2 of 2 11:30 AM [id number]
--- NOTE | 2018-07-23 14:10 | HOSPPROG ---
Hospitalist Progress Note Assessment/Plan: 68 yo M w htn., fmd, tia largely neg workup home today see dc summary Subjective: case d/w dr perez. sx resolved. no AF on telemetry (interp by me) Objective: Vital Signs Temp Pulse Resp BP Pulse Ox 36.6 C 60 23 H 150/95 H 94 07/23/18 11:24 07/23/18 11:24 07/23/18 11:24 07/23/18 11:24 07/23/18 11:24 07/22/18 07/23/18 07/24/18 05:59 05:59 05:59 Intake Total 250 Output Total 700 Balance -450 - Physical Exam Constitutional: no apparent distress, appears nourished Eyes: PERRL, anicteric sclera Ears, Nose, Mouth, Throat: moist mucous membranes, hearing normal Cardiovascular: regular rate and rhythym, no murmur, rub, or gallop, No systolic murmur Respiratory: no respiratory distress, no rales or rhonchi Gastrointestinal: normoactive bowel sounds, soft, non-tender abdomen Genitourinary: No singh in urethra Skin: warm Musculoskeletal: full muscle strength Neurologic: AAOx3 Psychiatric: interacting appropriately Lymph, Heme, Immunologic: no cervical LAD ICD10 Worksheet Patient Problems: Problems Problem Status Onset Transient cerebral ischemia Acute Chest pain Acute
--- NOTE | 2018-07-23 14:30 | GDS ---
[f rep st] DISCHARGE SUMMARY DISCHARGE DIAGNOSES: 1. Transient ischemic attack with left upper extremity, left lower extremity, and left periorbital p aresthesias. 2. Hypertension. 3. Probable fibromuscular dysplasia with 71% renal artery stenosis. 4. 3 mm basilar artery aneurysm. 5. Hyperlipidemia. Please see admission history and physical by Dr. Rosibel Weiss. The patient presented with these afo rementioned symptoms. He had a stroke workup, which was negative for stroke. He had no events on te lemetry suggestive of atrial fibrillation. He had an LDL of 130 indicating candidate for statin. He was markedly hypertensive on presentation with blood pressure of 202/113 at the highest, but he fell to the 150s over 90s the following day, which thoroughly represents inadequate control. He was note d to have this artery aneurysm in his basilar artery. He was seen by Neurosurgery who recommended a referral to Dr. Jose Armando Mao who is a vascular neurosurgeon here. He had no evidence of stroke on MRI. He was prescribed a statin, recommended initiating aspirin therapy, this was cleared with Neurosurger y. His lisinopril was doubled, and I called his primary care physician to arrange outpatient followu p for ongoing blood pressure evaluation. /[id number]/MODL
--- NOTE | 2018-07-23 18:26 | GCON ---
[f rep st] CONSULTATION NEUROLOGIC CONSULTATION The patient is a 68-year-old who is here for evaluation of some episodes of left-sided tingling. The re have been 3 episodes with the first 2 nights ago, the second yesterday during the day and then the third one in the evening after hospitalization. They were quite similar in which he develops left p eriorbital numbness followed by numbness in the hand, then spreads into the arm and trunk and leg liyah rly quickly and has lasted approximately 45-60 minutes generally. There are no prior episodes like t his. The patient is not noted to have any history of migraines. He also felt a little discoordinati on with his left hand when this occurred and had trouble holding an instrument. He works as a dentis t. He was not confused during the episodes and did not have changes in his speech or vision. His past medical history is notable for hypertension. He has a history of some reflux. There is a h istory of lumbar stenosis with prior surgery 10 years ago in the lumbar region and then more recent s urgeries at the L4-L5 level with hardware removal and other fusion at L4-S1 in 2018. His brother d with a ruptured aortic aneurysm. A former smoker. He has a few drinks of alcohol per week. No dr ug use. He continues to work as a dentist. REVIEW OF SYSTEMS: Unremarkable except for that noted above. PHYSICAL EXAM: VITAL SIGNS: Blood pressure is 150/95, pulse of 60, respirations 23. Temperature 36 .6. GENERAL: Well developed, no acute distress. Alert and attentive, with clear, fluent speech. H EENT: No facial asymmetry and no sensory loss. Extraocular movements intact. Hearing preserved. N EURO: Motor exam: Normal muscle bulk and tone, 5/5 strength, with no abnormal movements. Sensation is preserved for temperature and light touch. Reflexes are 1+ and symmetric. He has an elevated LDL cholesterol around 130. MR angiogram shows a small basilar artery aneurysm, a bout 3 mm, at the P1 segment, and there are changes in the carotid artery with some beating that migh t represent fibromuscular dysplasia. He subsequently had changes in the renal artery of about 70% st enosis, which could be associated with fibromuscular dysplasia as well, but no aortic aneurysms or an omalies otherwise. The brain MRI did not show any evidence of stroke. He had echocardiogram as well. Normal ejection fraction. Unremarkable valve. The patient has an NIH Stroke Scale of 0. IMPRESSION: Total unit time of 50 minutes. The patient has probably experienced transient ischemic attack. He is going to go on aspirin 81 mg daily and start on statin therapy for secondary stroke pr ophylaxis. He will follow up with Dr. Helio Reyes, whom I contacted, regarding hypertension and co nsideration of any role for angioplasty of the renal arteries as an outpatient. Otherwise, we will m onitor his clinical course. Neurosurgery was consulted about the aneurysm and felt it did not need a ny acute intervention and can follow up with Dr. Mao in about a month to consider any other diagnos tic evaluations or the role for any other interventions outside of simply monitoring. /[id number]/MODL
== END 2018-07-23 14:57 | disposition home or self-care (01) ==
LOC: F3N 17:48
PROVIDERS: ADMIT Internal Medicine; ATTEND Internal Medicine
DX: G45.9 Transient cerebral ischemic attack, unspecified (principal); I10 Essential (primary) hypertension; I72.5 Aneurysm of other precerebral arteries; E78.5 Hyperlipidemia, unspecified; I77.3 Arterial fibromuscular dysplasia; Z96.651 Presence of right artificial knee joint; Z98.1 Arthrodesis status; Z87.891 Personal history of nicotine dependence; Z82.49 Family history of ischemic heart disease and other diseases of the circulatory system
CPT/HCPCS: 70450; 70544; 70548; 70551; 71275; 74175; 92523; 93005; 93306; 99285; A9585; G0378; Q9967; 82435-PO; 82565-PO; 82947-PO; 84132-PO; 84295-PO; 84484-ER; 84520-PO; 85014-ER